=== PATIENT | female | born 1945 | race Caucasian/White ===

== ENCOUNTER 2017-02-11 13:50 | Outpatient (CLI) | payer MEDICARE, OTHER ==
--- NOTE | 2017-02-11 15:39 | XRAY Report ---
FOUR VIEW LEFT KNEE: 02/11/2017 CLINICAL INDICATION: Joint pain. FINDINGS: AP, notch, lateral, and sunrise views of the left knee demonstrate mild osteoarthritis. Th ere is no evidence of acute fracture or dislocation. No radiopaque foreign body is seen in the soft t issues. IMPRESSION: MILD LEFT KNEE OSTEOARTHRITIS. JOB #: [id number] EXT JOB #:[id number]
== END 2017-02-11 13:51 | disposition home or self-care (01) ==
LOC: DI 13:50
PROVIDERS: ATTEND Orthopaedic Surgery
DX: M17.12 Unilateral primary osteoarthritis, left knee (principal)

== ENCOUNTER 2017-03-27 13:07 | Outpatient (CLI) | payer MEDICARE, OTHER | END 2017-03-27 13:08 | disposition home or self-care (01) | LOC: RT 13:07 | PROVIDERS: ATTEND Physician Assistant | DX: I51.7 Cardiomegaly (principal); R01.1 Cardiac murmur, unspecified; E78.5 Hyperlipidemia, unspecified; I10 Essential (primary) hypertension | CPT/HCPCS: 93005; 93306 ==

== ENCOUNTER 2017-04-15 09:15 | Inpatient (IN) | payer MEDICARE, OTHER ==
[2017-04-15] MEDS ORDERED: ceFAZolin 2 GM/50 ML 2 GM/50 ML BAG IV ONE (09:29)
[2017-04-15] MEDS ORDERED: LACTATED RINGERS 1,000 ML IV ONE (09:30)
[2017-04-15] MEDS ORDERED: KETOROLAC 15 MG/ML VIAL IVP ONE ×2 (12:49→15:55)
[2017-04-15] MEDS ORDERED: EPINEPHrine 1 MG/ML AMP IVP ONE ×2 (12:49→15:54)
[2017-04-15] MEDS ORDERED: ROPIVACAINE 0.2% PF 20 ML AMPULE SUBQ ONE ×2 (12:50→15:55)
[2017-04-15] MEDS ORDERED: MORPHINE PF 10 MG/10 ML AMP SUBQ ONE ×2 (12:51→15:55)
[2017-04-15] MEDS ORDERED: BUPIVACAINE 0.5%-EPI 1:200000 PF 30 ML VIAL SUBQ ONE ×2 (12:51→15:55)
--- NOTE | 2017-04-15 16:46 | OPERATIVE REPORT ---
Operative Report - General Admit Date: 04/15/17 Procedure Date: 04/15/17 Pre-Op Diagnosis: Left Knee Osteoarthritis Procedure Performed: Left Total Knee Arthroplasty Post Op Diagnosis: Same - Procedure Note Primary Surgeon: Dre Aguilar MD Anesthesia Provider: MD Frederick Anesthesia Technique: General ET tube, Regional block, Spinal Pathology: Same IV Fluids (mL): 1,900 (LR) Estimated Blood Loss (mL): 300 Urine Output (mL): 100 Complications: None. - Other Other Information/Narrative: Tourniquet: Left Thigh @ 275 mm Hg x 90 minutes w/o complications. Implants: Moses Persona Knee: Femoral Component Sz 7 Narrow, PS Tibial Tray Sz C Tibial Insert Polyethylene Sz C x 10 mm PS Patella Button Polyethylene 32 x 8 mm Palacos Cement Condition: Stable Disposition: PACU >> Med Surg
[2017-04-15] MEDS ORDERED: PROCHLORPERAZINE 10 MG/2 ML VIAL IVP PRN (16:49)
[2017-04-15] MEDS ORDERED: BISACODYL 5 MG TABLET PO PRN (16:49)
[2017-04-15] MEDS ORDERED: SENNA 8.6 MG TABLET PO PRN (16:49)
[2017-04-15] MEDS ORDERED: ONDANSETRON 4 MG/2 ML VIAL IVP PRN (16:49)
[2017-04-15] MEDS ORDERED: ACETAMINOPHEN 325 MG TABLET PO PRN (16:49)
[2017-04-15] MEDS ORDERED: DOCUSATE SODIUM 100 MG CAPSULE PO PRN (16:49)
[2017-04-15] MEDS ORDERED: ACETAMINOPHEN 1,000 MG/100 ML 100 ML IV PRN (16:49)
[2017-04-15] MEDS ORDERED: BISACODYL 10 MG SUPP PR PRN (16:49)
[2017-04-15] MEDS ORDERED: HYDROmorphone 1 MG/ML SYRINGE ONE (17:30)
[2017-04-15] MEDS ORDERED: fentaNYL 100 MCG/2 ML VIAL ONE (17:37)
[2017-04-15] MEDS: KETOROLAC 15 MG/ML VIAL IVP PRN (18:37)
[2017-04-15] MEDS: HYDROmorphone 1 MG/ML SYRINGE IVP PRN (18:37)
--- NOTE | 2017-04-15 18:59 | XRAY Preliminary Report ---
Exam: XR Knee 2 View LT IMPRESSION: Expected appearance of left knee arthroplasty. [facility] SITE ID: [id number]
--- NOTE | 2017-04-15 19:01 | XRAY Report ---
EXAM: LEFT KNEE RADIOGRAPHY EXAM DATE: 04/15/2017 05:21 PM. CLINICAL HISTORY: S/p Left TKA. COMPARISON: 02/11/2017. TECHNIQUE: 2 views. FINDINGS: Bones and Joints: No fractures or bone lesion. A 3 component left knee arthroplasty has been performe d. There is expected alignment of components. No unexpected periprosthetic lucency or other evidence of loosening. Soft Tissues: No knee effusion. Vascular calcifications and postop soft tissue air noted. IMPRESSION: Expected appearance of left knee arthroplasty. [facility] Referring Provider Line: [phone] SITE ID: [id number]
[2017-04-15] MEDS: ceFAZolin 2 GM/50 ML 2 GM/50 ML BAG IV SCH (21:30)
[2017-04-15] MEDS: ATORVASTATIN 10 MG TABLET PO SCH (21:30)
[2017-04-15] MEDS: METOPROLOL TARTRATE 25 MG TABLET PO SCH (21:31)
[2017-04-15] MEDS: LISINOPRIL 20 MG TABLET PO SCH (21:32)
[2017-04-15] MEDS: hydroCHLOROthiazide 12.5 MG CAPSULE PO SCH (21:32)
[2017-04-15] MEDS: SODIUM CHLORIDE FLUSH 0.9% 10 ML SYRINGE IVP SCH (21:33)
[2017-04-15] MEDS: oxyCOD/ACETAMIN 5 MG/325 MG TABLET PO PRN (21:37)
[2017-04-15] MEDS: SODIUM CHLORIDE 0.45% 1,000 ML IV SCH (21:43)
[2017-04-16] MEDS: HYDROmorphone 1 MG/ML SYRINGE IVP PRN ×5 (00:49→17:50)
[2017-04-16] MEDS: KETOROLAC 15 MG/ML VIAL IVP PRN ×3 (00:50→22:24)
[2017-04-16] MEDS: oxyCOD/ACETAMIN 5 MG/325 MG TABLET PO PRN ×4 (03:12→20:59)
[2017-04-16] MEDS: ceFAZolin 2 GM/50 ML 2 GM/50 ML BAG IV SCH (05:53)
[2017-04-16] MEDS: SODIUM CHLORIDE FLUSH 0.9% 10 ML SYRINGE IVP SCH ×4 (05:55→17:51)
[2017-04-16] MEDS: PANTOPRAZOLE 40 MG TABLET PO SCH (05:57)
[2017-04-16 06:41] LABS: BASOPHILS % (AUTO) 0.3 %; EOSINOPHILS # (AUTO) 0.1 10^3/uL (0.0-0.7); HCT - HEMATOCRIT 35.7 % (37.0-47.0); HGB - HEMOGLOBIN 11.9 g/dL (12.0-16.0); LYMPHOCYTES # (AUTO) 0.5 10^3/uL (1.5-3.5); LYMPHOCYTES % (AUTO) 5.8 %; MEAN CORPUSCULAR HEMOGLOBIN 33.8 pg (27.0-31.0); MEAN CORPUSCULAR HGB CONC 33.5 g/dL (32.0-36.0); MEAN CORPUSCULAR VOLUME 101.1 fL (81.0-99.0); MEAN PLATELET VOLUME 7.5 fL (7.9-10.8); MONOCYTES # (AUTO) 0.8 10^3/uL (0.0-1.0); MONOCYTES % (AUTO) 9.9 %; NUCLEATED RED BLOOD CELLS AUTO 0.1 /100WBC; RED BLOOD COUNT 3.53 10^6/uL (4.20-5.40); RED CELL DISTRIBUTION WIDTH 12.9 % (12.0-15.0); UNCORRECTED WHITE BLOOD COUNT 8.4 x10^3/uL; WHITE BLOOD COUNT 8.4 x10^3/uL (4.8-10.8)
[2017-04-16 06:55] LABS: CALCIUM 8.2 mg/dL (8.5-10.3); CREATININE 0.6 mg/dL (0.4-1.0); POTASSIUM 3.9 mmol/L (3.5-5.0)
[2017-04-16] MEDS: SODIUM CHLORIDE 0.45% 1,000 ML IV SCH ×2 (06:55→18:50)
[2017-04-16] MEDS ORDERED: BETA CAROTENE 25000 UNIT PO SCH (09:00)
[2017-04-16] MEDS: POLYETHYLENE GLYCOL 3350 17 GM PACKET PO SCH (09:07)
[2017-04-16] MEDS: METOPROLOL TARTRATE 25 MG TABLET PO SCH ×2 (09:09→20:59)
[2017-04-16] MEDS: LISINOPRIL 20 MG TABLET PO SCH ×2 (09:11→20:58)
[2017-04-16] MEDS: MULTIVITAMIN TABLET PO SCH (09:12)
[2017-04-16] MEDS: TOCOPHERYL 400 UNIT CAPSULE PO SCH (09:12)
[2017-04-16] MEDS: SERTRALINE 50 MG TABLET PO SCH (09:12)
[2017-04-16] MEDS: ENOXAPARIN 40 MG/0.4 ML SYRINGE SUBQ SCH (09:13)
[2017-04-16] MEDS: CALCIUM CITRATE 250 MG TABLET PO SCH (09:13)
[2017-04-16] MEDS: CHOLECALCIFEROL 1,000 UNIT TABLET PO SCH (09:13)
[2017-04-16] MEDS: hydroCHLOROthiazide 12.5 MG CAPSULE PO SCH ×2 (11:00→20:58)
[2017-04-16] MEDS: SODIUM CHLORIDE FLUSH 0.9% 10 ML SYRINGE IVP PRN ×3 (12:09→22:24)
[2017-04-16] MEDS ORDERED: ONDANSETRON 4 MG/2 ML VIAL IVP ONE (16:00)
[2017-04-16] MEDS ORDERED: LIDOCAINE-MPF 2% 5 ML VIAL IM ONE (16:00)
[2017-04-16] MEDS ORDERED: ACETAMINOPHEN 1,000 MG/100 ML 100 ML IV ONE (16:00)
[2017-04-16] MEDS ORDERED: fentaNYL 100 MCG/2 ML VIAL IVP ONE (16:00)
[2017-04-16] MEDS ORDERED: METOCLOPRAMIDE 10 MG/2 ML VIAL IVP ONE (16:00)
[2017-04-16] MEDS ORDERED: PROPOFOL 200 MG/20 ML VIAL IVP ONE (16:00)
[2017-04-16] MEDS ORDERED: TRANEXAMIC ACID 1,000 MG/10 ML VIAL IV ONE (16:00)
[2017-04-16] MEDS ORDERED: DEXAMETHASONE 4 MG/ML VIAL IVP ONE (16:00)
[2017-04-16] MEDS ORDERED: ceFAZolin 2 GM/50 ML BAG IV ONE (16:00)
[2017-04-16] MEDS ORDERED: KETOROLAC 30 MG/ML VIAL IVP ONE (16:00)
[2017-04-16] MEDS: ATORVASTATIN 10 MG TABLET PO SCH (20:58)
[2017-04-17] MEDS: oxyCOD/ACETAMIN 5 MG/325 MG TABLET PO PRN ×6 (00:49→21:40)
[2017-04-17] MEDS: HYDROmorphone 1 MG/ML SYRINGE IVP PRN ×3 (03:32→17:13)
[2017-04-17] MEDS: PANTOPRAZOLE 40 MG TABLET PO SCH (06:28)
[2017-04-17] MEDS: LISINOPRIL 20 MG TABLET PO SCH ×2 (09:09→21:40)
[2017-04-17] MEDS: METOPROLOL TARTRATE 25 MG TABLET PO SCH ×2 (09:09→21:40)
[2017-04-17] MEDS: TOCOPHERYL 400 UNIT CAPSULE PO SCH (09:09)
[2017-04-17] MEDS: ENOXAPARIN 40 MG/0.4 ML SYRINGE SUBQ SCH (09:09)
[2017-04-17] MEDS: POLYETHYLENE GLYCOL 3350 17 GM PACKET PO SCH (09:09)
[2017-04-17] MEDS: MULTIVITAMIN TABLET PO SCH (09:10)
[2017-04-17] MEDS: CALCIUM CITRATE 250 MG TABLET PO SCH (09:10)
[2017-04-17] MEDS: SERTRALINE 50 MG TABLET PO SCH (09:11)
[2017-04-17] MEDS: hydroCHLOROthiazide 12.5 MG CAPSULE PO SCH ×3 (09:11→21:39)
[2017-04-17] MEDS: CHOLECALCIFEROL 1,000 UNIT TABLET PO SCH (09:11)
[2017-04-17] MEDS: KETOROLAC 15 MG/ML VIAL IVP PRN ×2 (09:21→17:59)
[2017-04-17] MEDS: SODIUM CHLORIDE FLUSH 0.9% 10 ML SYRINGE IVP SCH ×3 (09:22→21:41)
[2017-04-17] MEDS: SODIUM CHLORIDE FLUSH 0.9% 10 ML SYRINGE IVP PRN ×2 (17:13→18:00)
[2017-04-17] MEDS: ATORVASTATIN 10 MG TABLET PO SCH (21:39)
[2017-04-18] MEDS: KETOROLAC 15 MG/ML VIAL IVP PRN ×3 (02:11→20:13)
[2017-04-18] MEDS: SODIUM CHLORIDE FLUSH 0.9% 10 ML SYRINGE IVP PRN (02:11)
[2017-04-18] MEDS: oxyCOD/ACETAMIN 5 MG/325 MG TABLET PO PRN ×4 (02:11→20:17)
[2017-04-18] MEDS: PANTOPRAZOLE 40 MG TABLET PO SCH (06:59)
[2017-04-18] MEDS: SODIUM CHLORIDE FLUSH 0.9% 10 ML SYRINGE IVP SCH ×3 (06:59→20:13)
[2017-04-18] MEDS: CALCIUM CITRATE 250 MG TABLET PO SCH (09:19)
[2017-04-18] MEDS: MULTIVITAMIN TABLET PO SCH (09:19)
[2017-04-18] MEDS: hydroCHLOROthiazide 12.5 MG CAPSULE PO SCH ×2 (09:19→20:21)
[2017-04-18] MEDS: METOPROLOL TARTRATE 25 MG TABLET PO SCH ×2 (09:19→20:16)
[2017-04-18] MEDS: SERTRALINE 50 MG TABLET PO SCH (09:19)
[2017-04-18] MEDS: CHOLECALCIFEROL 1,000 UNIT TABLET PO SCH (09:19)
[2017-04-18] MEDS: TOCOPHERYL 400 UNIT CAPSULE PO SCH (09:20)
[2017-04-18] MEDS: LISINOPRIL 20 MG TABLET PO SCH ×2 (09:20→20:16)
[2017-04-18] MEDS: ENOXAPARIN 40 MG/0.4 ML SYRINGE SUBQ SCH (09:20)
[2017-04-18] MEDS: POLYETHYLENE GLYCOL 3350 17 GM PACKET PO SCH (09:20)
[2017-04-18] MEDS: HYDROmorphone 1 MG/ML SYRINGE IVP PRN (10:09)
[2017-04-18] MEDS ORDERED: DOCUSATE SODIUM 250 MG CAPSULE PO ONE (14:27)
[2017-04-18] MEDS ORDERED: SENNA 8.6 MG TABLET ONE (14:28)
[2017-04-18] MEDS: SENNA 8.6 MG TABLET PO SCH (14:29)
[2017-04-18] MEDS: DOCUSATE SODIUM 250 MG CAPSULE PO SCH (14:29)
[2017-04-18] MEDS: ATORVASTATIN 10 MG TABLET PO SCH (20:27)
[2017-04-19] MEDS: oxyCOD/ACETAMIN 5 MG/325 MG TABLET PO PRN ×3 (00:52→10:57)
[2017-04-19] MEDS: KETOROLAC 15 MG/ML VIAL IVP PRN (05:05)
[2017-04-19] MEDS: SODIUM CHLORIDE FLUSH 0.9% 10 ML SYRINGE IVP SCH (05:05)
[2017-04-19] MEDS: PANTOPRAZOLE 40 MG TABLET PO SCH (06:42)
[2017-04-19 08:05] VITALS: BP 110/67
[2017-04-19] MEDS: CALCIUM CITRATE 250 MG TABLET PO SCH (08:55)
[2017-04-19] MEDS: METOPROLOL TARTRATE 25 MG TABLET PO SCH (08:55)
[2017-04-19] MEDS: CHOLECALCIFEROL 1,000 UNIT TABLET PO SCH (08:55)
[2017-04-19] MEDS: MULTIVITAMIN TABLET PO SCH (08:55)
[2017-04-19] MEDS: SENNA 8.6 MG TABLET PO SCH (08:56)
[2017-04-19] MEDS: TOCOPHERYL 400 UNIT CAPSULE PO SCH (08:56)
[2017-04-19] MEDS: ENOXAPARIN 40 MG/0.4 ML SYRINGE SUBQ SCH (08:56)
[2017-04-19] MEDS: DOCUSATE SODIUM 250 MG CAPSULE PO SCH (08:56)
[2017-04-19] MEDS: LISINOPRIL 20 MG TABLET PO SCH (08:57)
[2017-04-19] MEDS: SERTRALINE 50 MG TABLET PO SCH (08:57)
[2017-04-19] MEDS: hydroCHLOROthiazide 12.5 MG CAPSULE PO SCH (08:57)
[2017-04-19] MEDS ORDERED: DOCUSATE SODIUM 250 MG CAPSULE PO SCH (09:00)
[2017-04-19] MEDS ORDERED: SENNA 8.6 MG TABLET PO SCH (09:00)
--- NOTE | 2017-04-19 09:19 | PROVIDER PROGRESS NOTE ---
Subjective - Prog Note Date Prog Note Date: 04/16/17 Prog Note Time: 12:00 - Subjective Pt reports feeling: Improved (Pain well controlled. Has not been up with PT yet. Will be up this afternoon.) Objective - Vital Signs/Intake & Output Reviewed Vital Signs: Yes Vital Signs: Vital Signs x48h Temp Pulse Resp BP BP Pulse Ox 04/19/17 08:55 110/67 04/19/17 08:00 36.4 C L 81 20 110/67 98 04/19/17 04:21 36.7 C 83 20 152/87 H 98 Intake & Output: Intake & Output 04/16/17 04/17/17 04/18/17 04/19/17 23:59 23:59 23:59 23:59 Intake Total 5480 1720 630 480 Output Total 1015 1025 200 Balance 4465 695 630 280 - Objective General Appearance: positive: Alert, Mild distress Eyes Bilateral: positive: Normal inspection ENT: positive: ENT inspection nml Neck: positive: Nml inspection Respiratory: positive: No respiratory distress, Breath sounds nml Cardiovascular: positive: Regular rate & rhythm Peripheral Pulses: 2+ Dorsalis pedis (L), 2+ Posterior tibialis (L) Abdomen: positive: Non-tender, Nml bowel sounds, No distention. negative: Guarding Back: positive: Nml inspection Skin: positive: Color nml Extremities: positive: Nml appearance, Other (Right knee dressing and wound C/D/ I. moderate surrounding erythema, consistent with her previous surgeries done by me.). negative: Calf tenderness, Ashley's sign/cords Neurologic/Psychiatric: positive: Oriented x3, Motor nml, Sensation nml, Mood/ affect nml - Lab Results Fish Bones: 04/16/17 05:57 04/16/17 05:57 - Diagnostic Imaging Diagnostic Imaging Results: positive: Read independently (Left TKA components in good position with normal alignment.) Assessment/Plan - Problem List (1) Status post total left knee replacement using cement Impression: Stable Post-Op Plan: 1. PT. 2. Begin planning for D/C to home.
--- NOTE | 2017-04-19 09:26 | PROVIDER PROGRESS NOTE ---
Subjective - Prog Note Date Prog Note Date: 04/17/17 - Subjective Pt reports feeling: Improved (Has been up w/ PT, making progress with walker. Pain well cointrolled.) Objective - Vital Signs/Intake & Output Reviewed Vital Signs: Yes Vital Signs: Vital Signs x48h Temp Pulse Resp BP BP Pulse Ox 04/19/17 08:55 110/67 04/19/17 08:00 36.4 C L 81 20 110/67 98 04/19/17 04:21 36.7 C 83 20 152/87 H 98 Intake & Output: Intake & Output 04/16/17 04/17/17 04/18/17 04/19/17 23:59 23:59 23:59 23:59 Intake Total 5480 1720 630 480 Output Total 1015 1025 200 Balance 4465 695 630 280 - Objective General Appearance: positive: No acute distress Eyes Bilateral: positive: Normal inspection ENT: positive: ENT inspection nml Neck: positive: Nml inspection Respiratory: positive: No respiratory distress, Breath sounds nml Cardiovascular: positive: Regular rate & rhythm Peripheral Pulses: 2+ Dorsalis pedis (L), 2+ Posterior tibialis (L) Abdomen: positive: Non-tender, Nml bowel sounds, No distention. negative: Guarding Back: positive: Nml inspection Skin: positive: Color nml, No rash, Warm, Dry Extremities: positive: Other (Dressing intact, no increase in erythema. Mildly tender to palpation.). negative: Calf tenderness, Ashley's sign/cords - Lab Results Fish Bones: 04/16/17 05:57 04/16/17 05:57 Assessment/Plan - Problem List (1) Status post total left knee replacement using cement Impression: Stable Post-Op day #2 Plan: 1. Continue PT bid. 2. Plan D/C to home tomorrow or Saturday depending on PT progress. (2) Aftercare following knee joint replacement surgery Qualifiers: Laterality: left Qualified Code(s): Z47.1 - Aftercare following joint replacement surgery; Z96.652 - Presence of left artificial knee joint; Z96.652 - Presence of left artificial knee joint
--- NOTE | 2017-04-19 09:31 | PROVIDER PROGRESS NOTE ---
Subjective - Prog Note Date Prog Note Date: 04/18/17 - Subjective Pt reports feeling: Improved Subjective: Making progress with PT. Anticipate doing steps today and D/C tomorrow am. Pain well controlled w/ Percocet. Objective - Vital Signs/Intake & Output Reviewed Vital Signs: Yes Vital Signs: Vital Signs x48h Temp Pulse Resp BP BP Pulse Ox 04/19/17 08:55 110/67 04/19/17 08:00 36.4 C L 81 20 110/67 98 04/19/17 04:21 36.7 C 83 20 152/87 H 98 Intake & Output: Intake & Output 04/16/17 04/17/17 04/18/17 04/19/17 23:59 23:59 23:59 23:59 Intake Total 5480 1720 630 480 Output Total 1015 1025 200 Balance 4465 695 630 280 - Objective General Appearance: positive: No acute distress Eyes Bilateral: positive: Normal inspection ENT: positive: ENT inspection nml Neck: positive: Nml inspection Respiratory: positive: No respiratory distress, Breath sounds nml Cardiovascular: positive: Regular rate & rhythm Peripheral Pulses: 2+ Dorsalis pedis (L), 2+ Posterior tibialis (L) Abdomen: positive: Non-tender, Nml bowel sounds, No distention. negative: Guarding Back: positive: Nml inspection Skin: positive: Color nml, No rash, Warm, Dry Extremities: positive: Other (Wound C/D/I.). negative: Calf tenderness, Ashley' s sign/cords - Lab Results Fish Bones: 04/16/17 05:57 04/16/17 05:57 Assessment/Plan - Problem List (1) Status post total left knee replacement using cement Impression: Stable Post-Op Day #3 Plan: 1. Anticipate D/C to home tomorrow. 2. Will change Mepilex prior to D/C. (2) Aftercare following knee joint replacement surgery Qualifiers: Laterality: left Qualified Code(s): Z47.1 - Aftercare following joint replacement surgery; Z96.652 - Presence of left artificial knee joint; Z96.652 - Presence of left artificial knee joint
--- NOTE | 2017-04-19 09:36 | Discharge Plan ---
Discharge Plan Disposition: 01 Home, Self Care Condition: Good Prescriptions: Docusate Sodium 250Mg Capsule [Colace 250Mg Capsule] 250 - 500 mg PO DAILY #14 capsule oxyCODONE/ACET 5/325 [Percocet 5 mg/325 mg] 1 tab PO Q4HR PRN #20 tablet PRN Reason: Breakthrough Pain Diet: Regular Activity Restrictions: Wt Bearing as Tolerated Shower Restrictions: Yes (Keep wound dry.) Driving Restrictions: Yes Assistance Devices: Walker Weight Bearing: Full Weight Follow-Up Care: Outpatient Rehab - PT No Smoking: If you smoke, Please STOP! Call for help. Follow-up with: Nicole Mack PA [Primary Care Provider] - Dre Aguilar MD [Provider Admit Priv/Credential] -
[2017-04-19] MEDS: POLYETHYLENE GLYCOL 3350 17 GM PACKET PO SCH (10:57)
--- NOTE | 2017-05-10 15:13 | DISCHARGE SUMMARY ---
DATE OF ADMISSION: 04/15/2017 DATE OF DISCHARGE: 04/19/2017 CONDITION ON DISCHARGE: Good. FINAL DIAGNOSES: 1. Left total knee arthroplasty. 2. Aftercare for left total knee joint arthroplasty. PROCEDURE: Left total knee arthroplasty performed on 04/15/2017 without complication. HISTORY OF PRESENT ILLNESS: This is a 72-year-old female with a previous orthopedic history significa nt for bilateral knee osteoarthritis status post right total knee arthroplasty done several months be fore this procedure. She has also had a history of a right ankle bimalleolar fracture which underwent open reduction internal fixation. She also has a previous history of significant wound healing probl ems on both right and left lower extremities, requiring extensive wound care. However, she was noted on her previous right total knee arthroplasty to have healed the wounds satisf actorily without significant complications. After her history worsened with pain to her left knee inc luding pain at night and pain refractory to injection, as well as [id number]-[id number] anti-inflammatorie s and acetaminophen, as well as physical therapy and exercise, activity modification, and pain to the right hand, we elected to proceed with a left total knee arthroplasty. LABORATORY DATA: Hematology on 04/16/2017 showed a white count of 8.4, hemoglobin 11.9, hematocrit 35 .7, platelet count of 181, neutrophils 7.0, lymphocytes 0.5, monocytes 0.8, eosinophil 0.1, basophils 0.0. Chemistry on the same date showing a sodium of 135, potassium 3.9, chloride 100, CO2 28, BUN 15 , creatinine 0.6, glucose 116, calcium 8.2. HOSPITAL COURSE: The patient was admitted on 04/15/2017 where she underwent a left total knee arthrop lasty. Her postoperative course was significant for pain control issues as well as mobilization issue s with physical therapy. She was kept for an extra day to allow additional physical therapy work to g et her prepared for discharge to home. In discussion with the family the felt that he was nick quately able to care for at home and they both desired not to have to go to a shelter facilit y. After the patient was cleared by Physical Therapy we elected to discharge her to home. DISCHARGE MEDICATIONS: 1. Simvastatin 40 mg p.o. at bedtime. 2. Benazepril/hydrochlorothiazide 20/12.5 mg p.o. b.i.d.. 3. Multivitamin 1 p.o. daily. 4. Cholecalciferol (vitamin D3/vitamin D 10,000 units per capsule, 1 unit p.o. daily). 5. Sertraline 25 mg 2 tablets p.o. daily. 6. Vitamin E 400 units p.o. daily. 7. Betacarotene 25,000 units p.o. daily. 8. Omeprazole 20 mg p.o. daily. 9. Calcium citrate 200 mg p.o. daily. 10. Metoprolol 25 mg p.o. b.i.d.. 11. Acetaminophen 325 mg 2-3 tablets p.o. q.4h. p.r.n. pain. 12. Docusate sodium 250 mg 1-2 tablets p.o. daily. 13. Oxycodone/acetaminophen 5/325 mg 1 p.o. q.4h. p.r.n. pain, #20, no refills. DISCHARGE INSTRUCTIONS: The patient is discharged to home under the care of her to begin phys ical therapy early next week. DIET: Regular. ACTIVITY: Weightbearing as tolerated, right left lower extremity with a walker. FOLLOWUP APPOINTMENTS: [facility], , 2 weeks for a wound check. CODE STATUS: FULL CODE. JOB #: [id number] EXT JOB #:[id number]
--- NOTE | 2017-05-11 10:05 | OPERATIVE REPORT ---
DATE OF SURGERY: 04/15/2017 00:00:00 PREOPERATIVE DIAGNOSIS: Left knee osteoarthritis. POSTOPERATIVE DIAGNOSIS: Left knee osteoarthritis. NAME OF PROCEDURE: Left total knee arthroplasty. SURGEON: Dre Aguilar MD ANESTHESIA: Berto Mack MD, general endotracheal tube and regional block with spinal supplementati on. PATHOLOGY: Same. INTRAVENOUS FLUIDS: 1900 mL of lactated Ringer's. BLOOD LOSS: 300 mL. URINE OUTPUT: 100 mL. COMPLICATIONS: None. TOURNIQUET: Left thigh at 275 mmHg for 90 minutes without complications. IMPLANTS 1. Moses Persona knee femoral component size 7 narrow, posterior stabilized. 2. Tibial tray size C. 3. Tibial insert polyethylene size C x 10 mm, posterior stabilized. 4. Patellar button, polyethylene, 32 x 8 mm. 5. Palacos cement without antibiotics. CONDITION AT END OF PROCEDURE: Stable. DISPOSITION: PACU, then Med/Surg. INDICATIONS: This is a 72-year-old somewhat obese female who had previously undergone a right total k nee arthroplasty and has done very well since her surgery. She has a past history of a right ankle fr acture as well, and has had several wound healing complications over her recent medical past. She did, however, satisfactorily heal the right total knee arthroplasty incision which was done sever al months ago. She has now rehabilitated her right knee and is bothered significantly by pain in her left knee which has been refractory to injections, physical therapy, cane to the right hand, OTC anal gesics, and activity modification. Her pain has reached the point where it is interfering with her sl eeping at night. She elects to undergo left total knee arthroplasty. PROCEDURE IN DETAIL: After consent and identification, the patient was brought to the operating room and placed in the supine position on the operating table. After standard endotracheal intubation and establishment of a spinal anesthetic, the patient was placed in a supine position with appropriate mo nitoring and the left lower extremity was prepped and draped free in the usual sterile fashion for lo wer extremity surgery. Padded tourniquet was placed to the proximal left thigh. The left lower extremity was then placed in a sterile Muñoz leg joaquin. After an appropriate timeout was conducted, we elevated and exsanguinated the left lower extremity wi th an Esmarch bandage. The tourniquet was inflated to 275 mmHg. With the knee in an extended position, a standard median parapatellar approach was used to the knee a nd the patella was everted. Osteophytes were removed aggressively with a rongeur and osteotome. We th en performed a standard intramedullary reference distal femoral cut at 10 mm using the distal femoral cutting guide and an oscillating saw. We then placed the sizing and cutting block on the distal femu r and performed our anterior and posterior, as well as anterior chamfer and posterior chamfer, cuts. We saved the anterior chamfer bone piece to use as a plug to plug the drill hole in the distal femur. We then sized the distal femur to a size 7 narrow posterior stabilized component. At this point, with the femoral trial in place, we performed our box cuts. We resected the posterior and anterior cruciate ligaments. We then resected the medial and lateral meniscus sharply with a 10 b lade scalpel. A tuning fork was then placed to deliver the tibia forward. The extramedullary cutting guide was then placed over the anterior walter, referenced to the 2nd metata rsal. We referenced the low side of the tibia on the lateral compartment and affixed the cutting guid e with pins and used an oscillating saw to perform a proximal tibial cut. At this point, we used the sizing blocks to check our flexion and extension gaps, which were noted to be satisfactory. Good collateral ligamentous support was noted. We then placed the tibial tray components over the proximal tibia and sized to a size C tibial compon ent. With the trial tray in place, we placed our pins and performed our reamer and fin cuts to the pr oximal tibia. We then inserted our size #7 narrow posterior stabilized femoral component and a 10 mm posterior stabilized tibial insert to the knee and ranged the knee, noting good stability and good co llateral ligament play. With the knee in an extended position, we placed the caliper on the patella a nd noted the patellar thickness to be 22 mm. We elected to make an 8 mm cut which was performed with an oscillating saw on the cutting guide. We drilled our 3 submersible pilot holes and placed a 32 x 8 mm trial pa tellar component and reduced the patella. Good tracking was noted in flexion and extension. We then removed all of our trial components and thoroughly irrigated the knee with 3 liters of steril e saline. We then placed dry lap sponges in the knee while we mixed a double batch of Palacos cement on the back table. With the cement in the doughy consistency, we opened our components after verifying sizes, and placed cement on the back of the femoral and tibial tray components. The tibial tray was inserted first, fo llowed by insertion and impaction of the femoral component. Aggressive cement debridement was carried out and careful inspection of the posterior condyles to make sure there was no cement in the posteri or aspect of the knee. We then clamped our patellar component with cement on the back of the patellar component onto the patella. We then extended the knee and placed the foot on the Marina stand to allow the cement to harden. After cement had completely hardened, we inspected the knee once again, removing any excess cement. W e then thoroughly irrigated the knee. We elected at this point to deflate the tourniquet and used isidro ctrocautery and a tonsil forceps to achieve good hemostasis. Once we had achieved good hemostasis, we then sequentially closed the knee by placing a running #2 Ethibond suture to the median retinaculum, followed by interrupted 2-0 Vicryl subcuticular sutures, followed by a running 3-0 Monocryl suture t o the dermis. We infiltrated the wound with a total of 30 mL of 0.5% Marcaine with epinephrine. On completion of our closure, we placed a Mepilex Ag dressing over the knee. We then wrapped the enti re lower leg from thigh to foot with a 6-inch and 4-inch Richard bandage. With the Richard bandage in place, checking for any bleed-through, we then deflated the tourniquet withou t complication. The patient was then extubated and transferred to the recovery room in good condition, having tolerat ed the procedure well. JOB #: [id number] EXT JOB #:[id number]
== END 2017-04-19 11:30 | disposition home or self-care (01) | DRG 470 ==
LOC: MS3 09:15
PROVIDERS: ADMIT Orthopaedic Surgery; ATTEND Orthopaedic Surgery
PROC: 0SRD0J9 Replacement of Left Knee Joint with Synthetic Substitute, Cemented, Open Approach (ICD-10-PCS; principal; 2017-04-15 10:15)
DX: M17.12 Unilateral primary osteoarthritis, left knee (principal); Z68.42 Body mass index [BMI] 45.0-49.9, adult; Z96.653 Presence of artificial knee joint, bilateral; I10 Essential (primary) hypertension; E66.9 Obesity, unspecified; E78.5 Hyperlipidemia, unspecified; K76.9 Liver disease, unspecified; Z87.81 Personal history of (healed) traumatic fracture; Z85.89 Personal history of malignant neoplasm of other organs and systems; Z79.82 Long term (current) use of aspirin; Z87.2 Personal history of diseases of the skin and subcutaneous tissue
CPT/HCPCS: 36415; 80048; 85025

== ENCOUNTER 2017-09-17 10:38 | Outpatient (CLI) | payer MEDICARE, OTHER ==
--- NOTE | 2017-09-18 14:23 | Mammography Report ---
DIGITAL SCREENING MAMMOGRAM: 09/17/2017 CLINICAL INDICATION: A 72-year-old with personal history of left breast cancer, status post lumpectomy and radiation therapy for screening. COMPARISON: 03/2016, 12/2014, 12/2013, 12/2012, 12/2011, 06/2011, 12/2010, 06/2010, 12/2009, 11/2009. TECHNIQUE: Routine CC and MLO projections of the breasts. FINDINGS: The breasts demonstrate scattered fibroglandular densities bilaterally. Postoperative and post-treatment changes in the left breast are stable. Coarse and punctate, typically benign calcifications are present. No suspicious masses, clustered microcalcifications, or regions of architectural distortion are identified. IMPRESSION: BENIGN FINDINGS. RECOMMENDATION: Routine annual screening unless otherwise clinically indicated. BIRADS CATEGORY 2 - benign findings. STANDARD QUALIFYING STATEMENTS: 1. This examination was reviewed with the aid of Computer-Aided Detection (CAD). 2. A negative or benign imaging report should not delay biopsy if clinically suspicious findings are present. Consider surgical consultation if warranted. More than 5% of cancers are not identified by imaging. 3. Dense breasts may obscure an underlying neoplasm. TD: 09/18/2017 14:22
== END 2017-09-17 10:39 | disposition home or self-care (01) ==
LOC: DI 10:38
PROVIDERS: ATTEND Physician Assistant
DX: Z12.31 Encounter for screening mammogram for malignant neoplasm of breast (principal); Z85.3 Personal history of malignant neoplasm of breast
CPT/HCPCS: 77067

== ENCOUNTER 2019-03-11 10:35 | Outpatient (CLI) | payer MEDICARE, OTHER ==
--- NOTE | 2019-03-11 15:55 | XRAY Report ---
Reason: COUGH Procedure Date: 03/11/2019 Accession Number: [id number] / [id number] Procedure: XRS - Chest 2 View X-Ray CPT Code: 35962 FULL RESULT: EXAM: CHEST RADIOGRAPHY EXAM DATE: 03/11/2019 10:51 AM. CLINICAL HISTORY: COUGH. COMPARISON: 08/06/2015 3:26 AM. TECHNIQUE: 2 views. FINDINGS: Lungs/Pleura: No focal opacities evident. No pleural effusion. No pneumothorax. Normal volumes. Mediastinum: Heart and mediastinal contours are unremarkable. Other: None. IMPRESSION: Normal 2-view chest radiography. [facility]
[2019-03-11 17:56] LABS: BASOPHILS % (AUTO) 0.2 %; EOSINOPHILS % (AUTO) 5.6 %; HGB - HEMOGLOBIN 13.6 g/dL (12.0-16.0); LYMPHOCYTES % (AUTO) 1.9 %; MEAN CORPUSCULAR HEMOGLOBIN 33.5 pg (27.0-31.0); MEAN CORPUSCULAR HGB CONC 32.5 g/dL (32.0-36.0); MEAN PLATELET VOLUME 10.7 fL (7.9-10.8); MONOCYTES % (AUTO) 4.1 %; NEUTROPHILS % (AUTO) 83.3 %; PLT - PLATELET COUNT 245 10^3/uL (130-450); RED BLOOD COUNT 4.06 10^6/uL (4.20-5.40); RED CELL DISTRIBUTION WIDTH 13.3 % (12.0-15.0)
[2019-03-11 18:26] LABS: THYROID STIMULATING HORMONE 3.59 uIU/mL (0.34-5.60)
[2019-03-11 18:29] LABS: ABNORMAL LYMPHS % (MANUAL) 0 %; WHITE BLOOD COUNT 58.5 x10^3/uL (4.8-10.8)
[2019-03-11 18:30] LABS: FREE T4 (FREE THYROXINE) 0.98 ng/dL (0.58-1.64)
[2019-03-11 18:35] LABS: ALBUMIN/GLOBULIN RATIO 0.7 (1.0-2.2); ALKALINE PHOSPHATASE 147 IU/L (42-121); ALT ALANINE AMINOTRANSFERASE < 10 IU/L (10-60); AMYLASE 37 U/L (28-100); AST ASPARTATE AMINOTRANSFERASE 15 IU/L (10-42); BILIRUBIN,TOTAL 0.5 mg/dL (0.2-1.0); BUN - BLOOD UREA NITROGEN 52 mg/dL (6-20); CALCIUM 8.7 mg/dL (8.5-10.3); CARBON DIOXIDE - CO2 19 mmol/L (21-32); CHLORIDE 95 mmol/L (101-111); CHOLESTEROL 99 mg/dL; CREATININE 2.2 mg/dL (0.4-1.0); GFR - MDRD 22 (>89); GLUCOSE 133 mg/dL (70-100); HDL CHOLESTEROL 25 mg/dL; LDL CHOLESTEROL,CALCULATED 38 mg/dL; LDL/HDL RATIO 1.5 (<4.4); LIPASE 27 U/L (22-51); SODIUM 127 mmol/L (135-145); TOTAL PROTEIN 7.2 g/dL (6.7-8.2); VLDL CHOLESTEROL 36 mg/dL
[2019-03-11 19:09] LABS: BAND NEUTROPHILS % (MANUAL) 44 %; EOSINOPHILS # (MANUAL) 1.8 10^3/uL (0-0.7); LYMPHOCYTES # (MANUAL) 1.2 10^3/uL (1.5-3.5); LYMPHOCYTES % (MANUAL) 2 %; MONOCYTES # (MANUAL) 1.8 10^3/uL (0.0-1.0)
[2019-03-11 19:10] LABS: RBC MORPHOLOGY (MULTIPLE) 1+ MACROCYTOSIS (NORMAL)
[2019-03-11 19:11] LABS: DIFFERENTIAL COMMENT MANUAL DIFFERENTIAL; PLATELET ESTIMATE, MANUAL NORMAL (130-450,000) (NORMAL); PLATELET MORPHOLOGY 2+ GIANT PLATELETS (NORMAL)
== END 2019-03-11 10:36 | disposition home or self-care (01) ==
LOC: DI.S 10:35
PROVIDERS: ATTEND Physician Assistant
DX: R05 Cough (principal); R10.9 Unspecified abdominal pain; E78.2 Mixed hyperlipidemia; R53.83 Other fatigue
CPT/HCPCS: 36415; 71046; 80053; 80061; 82150; 83690; 83721; 84439; 84443; 85025

== ENCOUNTER 2019-03-11 20:19 | Inpatient (IN) | payer MEDICARE, OTHER ==
--- NOTE | 2019-03-11 20:50 | ED Physician Documentation ---
History of Present Illness - Stated complaint Stated Complaint: INFECTION - Chief complaint Chief Complaint: General - History obtained from History obtained from: Patient, Family - History of Present Illness Timing: How many weeks ago (2) Pain level max: 0 Pain level now: 0 Improved by: no ameliorating factors Worsened by: no exacerbating factors - Additonal information Additional information: per patient, "I've been very lethargic for two weeks, getting worse", "I just get weaker and weaker". c/o poor appetite, s.o. describes increasingly scant PO intake (both solids and liquids) over past 1-2 weeks. She was seen by PMD earlier today and had blood tests, was advised to go to ED when results returned and revealed significant leukocytosis. Review of Systems Constitutional: reports: Fatigue. denies: Fever, Chills, Myalgias, Sweats Eyes: reports: Reviewed and negative Ears: reports: Reviewed and negative Nose: reports: Reviewed and negative Throat: reports: Reviewed and negative Cardiac: reports: Reviewed and negative Respiratory: reports: Dyspnea (mild), Cough (mild, intermittent) GI: reports: Nausea. denies: Abdominal Pain, Vomiting, Constipation, Diarrhea, Hematemesis, Bloody / black stool : denies: Dysuria, Frequency Skin: reports: Reviewed and negative Musculoskeletal: reports: Reviewed and negative Neurologic: reports: Generalized weakness. denies: Focal weakness, Numbness, Confused, Altered mental status, Headache PD PAST MEDICAL HISTORY - Past Medical History Cardiovascular: Hypertension, High cholesterol, Murmur Respiratory: None Endocrine/Autoimmune: None GI: Colon polyps : Frequency HEENT: Chronic vision loss Psych: None, Depression Musculoskeletal: Osteoarthritis, Chronic back pain, Other Derm: None - Past Surgical History Past Surgical History: Yes General: Appendectomy, Colonoscopy Ortho: Knee replacement, Other /PRODUCT SUPPORT REPRESENTATIVE: Hysterectomy HEENT:  - Present Medications Home Medications: Ambulatory Orders Medication Instructions Recorded Confirmed Benazepril/Hydrochlorothiazide 1 each PO BID 01/07/13 04/15/17 [Benazepril-Hctz 20-12.5 mg Tab] Cholecalciferol (Vitamin D3) 1,000 unit PO DAILY 01/07/13 04/15/17 [Vitamin D3] Multivitamin [Multivitamins] 1 each PO DAILY 01/07/13 04/15/17 Simvastatin 40 mg PO HS 01/07/13 04/15/17 Sertraline [Zoloft] 50 mg PO DAILY 12/18/13 04/15/17 Beta-Carotene [Beta Carotene] 25,000 unit PO DAILY 01/10/15 04/15/17 Calcium Citrate 1 tab PO DAILY 01/10/15 04/15/17 Omeprazole 20 mg PO DAILY 01/10/15 04/15/17 Vitamin E 400 unit PO DAILY 01/10/15 04/15/17 Metoprolol Tartrate 25 mg PO BID 06/18/16 04/15/17 Acetaminophen [Tylenol] 650 - 975 mg PO Q4HR PRN #0 tablet 06/21/16 04/09/17 Docusate Sodium 250Mg Capsule 250 - 500 mg PO DAILY #60 capsule 06/21/16 04/15/17 [Colace 250Mg Capsule] Acetaminophen [Tylenol] 650 - 975 mg PO Q4HR PRN tablet 04/19/17 Docusate Sodium 250Mg Capsule 250 - 500 mg PO DAILY #14 capsule 04/19/17 [Colace 250Mg Capsule] oxyCODONE/ACET 5/325 [Percocet 5 1 tab PO Q4HR PRN #20 tablet 04/19/17 mg/325 mg] - Allergies Allergies/Adverse Reactions: Allergies Allergy/AdvReac Type Severity Reaction Status Date / Time clindamycin Allergy Hives Verified 03/11/19 20:35 Sulfa (Sulfonamide Allergy Hives Verified 03/11/19 20:35 Antibiotics) - Living Situation Living Situation: reports: With spouse/s.o. Living Arrangement: reports: At home - Social History Does the pt smoke?: No Smoking Status: Never smoker Does the pt drink ETOH?: Yes Does the pt have substance abuse?: No - Immunizations Immunizations are current?: Yes - POLST Patient has POLST: No PD ED PE NORMAL - Vitals Vital signs reviewed: Yes - General General: Alert and oriented X 3, No acute distress, Other (obese) - HEENT HEENT: PERRL, EOMI, Other (dry mucous membranes) - Neck Neck: Supple, no meningeal sign - Cardiac Cardiac: RRR, No murmur - Respiratory Respiratory: No respiratory distress - Abdomen Abdomen: Soft, Non distended, Other (mild periumbilical tenderness without rebound or guarding) - Back Back: No CVA TTP - Derm Derm: Normal color, Warm and dry - Neuro Neuro: Alert and oriented X 3 Eye Opening: Spontaneous Motor: Obeys Commands Verbal: Oriented GCS Score: 15 Results - Vitals Vitals: Vital Signs - 24 hr 03/11/19 03/11/19 03/11/19 20:32 20:33 21:05 Temperature 36.3 C L Heart Rate 86 86 83 Respiratory 19 19 Rate Blood Pressure 100/53 L 100/53 L 77/47 L O2 Saturation 96 96 03/11/19 03/11/19 03/11/19 21:30 21:34 22:00 Temperature Heart Rate 84 81 79 Respiratory 16 Rate Blood Pressure 83/55 L 75/63 L 102/80 O2 Saturation 93 03/11/19 03/11/19 03/12/19 22:30 23:00 00:00 Temperature Heart Rate 78 78 76 Respiratory 16 18 16 Rate Blood Pressure 112/89 H 97/78 88/42 L O2 Saturation 93 95 95 03/12/19 03/12/19 00:15 00:45 Temperature Heart Rate 78 Respiratory 21 Rate Blood Pressure 80/38 L 77/60 L O2 Saturation 95 Oxygen O2 Source Room air - EKG (time done) No standard instances Rate: Rate (enter#) (83) Rhythm: NSR [place]: LAD Intervals: Normal MD QRS: Normal Ischemia: Normal ST segments, Q waves (III, aVF), Other (T inverted III, flat aVF) - Labs Labs: Laboratory Tests 03/11/19 03/11/19 03/11/19 21:32 21:32 21:32 WBC 58.4 H* RBC 3.84 L Hgb 12.4 Hct 37.8 MCV 98.4 MCH 32.3 H MCHC 32.8 RDW 13.3 Plt Count 265 MPV 9.8 Neut # (Auto) Not Reportable Lymph # (Auto) Not Reportable [place] # (Auto) Not Reportable Eos # (Auto) Not Reportable Baso # (Auto) Not Reportable Absolute Nucleated RBC Not Reportable Total Counted 100 Band Neuts % (Manual) 31 H Abnorm Lymph % (Manual) 0 Nucleated RBC % Not Reportable Neutrophils # (Manual) 53.1 H Lymphocytes # (Manual) 0.0 L Monocytes # (Manual) 3.5 H Eosinophils # (Manual) 1.8 H Basophils # (Manual) 0.0 Differential Comment MANUAL DIFFERENTIAL WBC Morphology NORMAL APPEARANCE Platelet Estimate NORMAL (130-450,000) Platelet Morphology NORMAL APPEARANCE RBC Morph Micro Appear NORMAL APPEARANCE ESR PT 17.4 H INR 1.5 H APTT 27.0 Sodium 127 L Potassium 3.5 Chloride 92 L Carbon Dioxide 16 L Anion Gap 19.0 H BUN 55 H Creatinine 2.9 H Estimated GFR (MDRD) 16 L Glucose 115 H Lactic Acid Calcium 8.4 L Phosphorus Magnesium Ferritin Total Bilirubin 0.6 AST 13 ALT < 10 L Alkaline Phosphatase 132 H Troponin I High Sens Total Protein 6.6 L Albumin 2.9 L Globulin 3.7 Albumin/Globulin Ratio 0.8 L Lipase 25 TSH Urine Color Urine Clarity Urine pH Ur Specific [place] Urine Protein Urine Glucose (UA) Urine Ketones Urine Occult Blood Urine Nitrite Urine Bilirubin Urine Urobilinogen Ur Leukocyte Esterase Urine RBC Urine WBC Ur Squamous Epith Cells Amorphous Sediment Urine Bacteria Ur Microscopic Review Urine Culture Comments 03/11/19 03/11/19 03/12/19 21:32 22:32 00:40 WBC RBC Hgb Hct MCV MCH MCHC RDW Plt Count MPV Neut # (Auto) Lymph # (Auto) [place] # (Auto) Eos # (Auto) Baso # (Auto) Absolute Nucleated RBC Total Counted Band Neuts % (Manual) Abnorm Lymph % (Manual) Nucleated RBC % Neutrophils # (Manual) Lymphocytes # (Manual) Monocytes # (Manual) Eosinophils # (Manual) Basophils # (Manual) Differential Comment WBC Morphology Platelet Estimate Platelet Morphology RBC Morph Micro Appear ESR PT INR APTT Sodium Potassium Chloride Carbon Dioxide Anion Gap BUN Creatinine Estimated GFR (MDRD) Glucose Lactic Acid 1.2 Calcium Phosphorus Magnesium Ferritin Total Bilirubin AST ALT Alkaline Phosphatase Troponin I High Sens 8.0 Total Protein Albumin Globulin Albumin/Globulin Ratio Lipase TSH Urine Color YELLOW Urine Clarity HAZY Urine pH 5.0 Ur Specific [place] >=1.030 H Urine Protein 30 H Urine Glucose (UA) NEGATIVE Urine Ketones NEGATIVE Urine Occult Blood NEGATIVE Urine Nitrite NEGATIVE Urine Bilirubin NEGATIVE Urine Urobilinogen 0.2 (NORMAL) Ur Leukocyte Esterase NEGATIVE Urine RBC None Seen Urine WBC 0-3 Ur Squamous Epith Cells NONE SEEN Amorphous Sediment Marked Urine Bacteria Rare Ur Microscopic Review INDICATED Urine Culture Comments NOT INDICATED 03/12/19 03/12/19 03/12/19 00:40 00:40 00:40 WBC 44.6 H* RBC 3.26 L Hgb 10.8 L Hct 32.4 L MCV 99.4 H MCH 33.1 H MCHC 33.3 RDW 13.2 Plt Count 217 MPV 9.2 Neut # (Auto) Not Reportable Lymph # (Auto) Not Reportable [place] # (Auto) Not Reportable Eos # (Auto) Not Reportable Baso # (Auto) Not Reportable Absolute Nucleated RBC Not Reportable Total Counted 100 Band Neuts % (Manual) 27 H Abnorm Lymph % (Manual) 0 Nucleated RBC % Not Reportable Neutrophils # (Manual) 38.4 H Lymphocytes # (Manual) 0.9 L Monocytes # (Manual) 0.9 Eosinophils # (Manual) 4.5 H Basophils # (Manual) 0.0 Differential Comment MANUAL DIFFERENTIAL WBC Morphology Platelet Estimate NORMAL (130-450,000) Platelet Morphology RBC Morph Micro Appear NORMAL APPEARANCE ESR PT 19.1 H INR 1.7 H APTT Sodium 132 L Potassium 3.3 L Chloride 103 Carbon Dioxide 17 L Anion Gap 12.0 BUN 53 H Creatinine 2.2 H Estimated GFR (MDRD) 22 L Glucose 87 Lactic Acid Calcium 7.1 L Phosphorus 5.6 H Magnesium 1.5 L Ferritin Total Bilirubin AST ALT Alkaline Phosphatase Troponin I High Sens Total Protein Albumin Globulin Albumin/Globulin Ratio Lipase TSH Urine Color Urine Clarity Urine pH Ur Specific [place] Urine Protein Urine Glucose (UA) Urine Ketones Urine Occult Blood Urine Nitrite Urine Bilirubin Urine Urobilinogen Ur Leukocyte Esterase Urine RBC Urine WBC Ur Squamous Epith Cells Amorphous Sediment Urine Bacteria Ur Microscopic Review Urine Culture Comments 03/12/19 03/12/19 03/12/19 00:40 00:40 00:40 WBC RBC Hgb Hct MCV MCH MCHC RDW Plt Count MPV Neut # (Auto) Lymph # (Auto) [place] # (Auto) Eos # (Auto) Baso # (Auto) Absolute Nucleated RBC Total Counted Band Neuts % (Manual) Abnorm Lymph % (Manual) Nucleated RBC % Neutrophils # (Manual) Lymphocytes # (Manual) Monocytes # (Manual) Eosinophils # (Manual) Basophils # (Manual) Differential Comment WBC Morphology Platelet Estimate Platelet Morphology RBC Morph Micro Appear ESR 12 PT INR APTT Sodium Potassium Chloride Carbon Dioxide Anion Gap BUN Creatinine Estimated GFR (MDRD) Glucose Lactic Acid Calcium Phosphorus Magnesium Ferritin 813.7 H Total Bilirubin AST ALT Alkaline Phosphatase Troponin I High Sens Total Protein Albumin Globulin Albumin/Globulin Ratio Lipase TSH 1.14 Urine Color Urine Clarity Urine pH Ur Specific [place] Urine Protein Urine Glucose (UA) Urine Ketones Urine Occult Blood Urine Nitrite Urine Bilirubin Urine Urobilinogen Ur Leukocyte Esterase Urine RBC Urine WBC Ur Squamous Epith Cells Amorphous Sediment Urine Bacteria Ur Microscopic Review Urine Culture Comments - Rads (name of study) CXR Radiology: Prelim report reviewed, See rad report CT A/P Radiology: Prelim report reviewed, See rad report PD MEDICAL DECISION MAKING - ED course Complexity details: reviewed old records, reviewed results, re-evaluated patient , considered differential, d/w patient, d/w family ED course: early in ED stay patient became hypotensive although this did not correlate with any change in symptoms (during entire ED stay, she only c/o generalized weakness and fatigue). She responded to fluid bolus (30mg/kg per sepsis protocol) although late in ED stay her blood pressure readings were trending down again. The etiology of her symptoms, hypotension, and marked abnormalities on blood tests (specifically, WBC over 50 and creatinine 2.9) remain unclear after ED testing. Admitted to hospitalist after I discussed the case with Dr. Blankenship. Dr. Valdivia graciously placed a triple-lumen CVC in right IJ while patient was in the ED. - Critical Care Time(min): 60 Time Includes: Direct patient care, Review records, Reassess patient, Document care, See progress note Data interpretation: Labs, Pulse ox, CXR, See progress note Procedures included in critical care time: See progress note Procedures excluded from critical care time: See progress note - Sepsis Event Current Stage of Sepsis: Severe sepsis Initial Hypotension: SBP less than 90 mmHg Persistent Hypotension: SBP less than 90 mmHg Possible source of Sepsis: Unknown Mental/Cognitive Status: Alert/Oriented X3, Other (remained awake, alert, oriented x 3, conversant and appropriate during ED stay) Capillary refill: Less than 2 seconds Bedside ultrasound performed: No Departure - Departure Disposition: 66 [facility] DC/Xfer Clinical Impression: Septic shock Condition: Serious Discharge Date/Time: 03/12/19 01:01
[2019-03-11] MEDS ORDERED: SODIUM CHLORIDE 0.9% 1,000 ML IV STA (21:14)
[2019-03-11] MEDS ORDERED: SODIUM CHLORIDE 0.9% 2,993.7 ML IV STA (21:17)
[2019-03-11] MEDS ORDERED: CEFEPIME 2 GM in SODIUM CHLORIDE 0.9% MINIBAG 100 ML IV STA (21:32)
[2019-03-11] MEDS ORDERED: VANCOMYCIN INJ 2.5 GM in SODIUM CHLORIDE 0.9% 500 ML IV STA (21:32)
[2019-03-11] MEDS ORDERED: metroNIDAZOLE 500 MG/100 ML 500 MG/100 ML BAG IV STA (21:32)
[2019-03-11 21:38] LABS: BASOPHILS % (AUTO) 0.2 %; EOSINOPHILS % (AUTO) 4.7 %; HGB - HEMOGLOBIN 12.4 g/dL (12.0-16.0); LYMPHOCYTES % (AUTO) 1.7 %; MEAN CORPUSCULAR HEMOGLOBIN 32.3 pg (27.0-31.0); MEAN CORPUSCULAR HGB CONC 32.8 g/dL (32.0-36.0); MEAN CORPUSCULAR VOLUME 98.4 fL (81.0-99.0); MEAN PLATELET VOLUME 9.8 fL (7.9-10.8); MONOCYTES % (AUTO) 4.6 %; NEUTROPHILS % (AUTO) 84.9 %; PLT - PLATELET COUNT 265 10^3/uL (130-450); RED BLOOD COUNT 3.84 10^6/uL (4.20-5.40); RED CELL DISTRIBUTION WIDTH 13.3 % (12.0-15.0)
[2019-03-11 21:42] LABS: WHITE BLOOD COUNT 58.4 x10^3/uL (4.8-10.8)
[2019-03-11 21:43] LABS: ABNORMAL LYMPHS % (MANUAL) 0 %; LYMPHOCYTES % (MANUAL) 0 %
[2019-03-11 21:44] LABS: INR 1.5 (0.8-1.2); PT - PROTHROMBIN TIME 17.4 secs (9.9-12.6)
[2019-03-11 21:53] LABS: ALBUMIN 2.9 g/dL (3.2-5.5); ALBUMIN/GLOBULIN RATIO 0.8 (1.0-2.2); ALKALINE PHOSPHATASE 132 IU/L (42-121); ALT ALANINE AMINOTRANSFERASE < 10 IU/L (10-60); AST ASPARTATE AMINOTRANSFERASE 13 IU/L (10-42); BILIRUBIN,TOTAL 0.6 mg/dL (0.2-1.0); BUN - BLOOD UREA NITROGEN 55 mg/dL (6-20); CALCIUM 8.4 mg/dL (8.5-10.3); CARBON DIOXIDE - CO2 16 mmol/L (21-32); CHLORIDE 92 mmol/L (101-111); CREATININE 2.9 mg/dL (0.4-1.0); GFR - MDRD 16 (>89); GLUCOSE 115 mg/dL (70-100); LIPASE 25 U/L (22-51); SODIUM 127 mmol/L (135-145); TOTAL PROTEIN 6.6 g/dL (6.7-8.2)
[2019-03-11 22:00] LABS: BAND NEUTROPHILS % (MANUAL) 31 %; DIFFERENTIAL COMMENT MANUAL DIFFERENTIAL; EOSINOPHILS # (MANUAL) 1.8 10^3/uL (0-0.7); MONOCYTES # (MANUAL) 3.5 10^3/uL (0.0-1.0); PLATELET ESTIMATE, MANUAL NORMAL (130-450,000) (NORMAL); PLATELET MORPHOLOGY NORMAL APPEARANCE (NORMAL); RBC MORPHOLOGY (MULTIPLE) NORMAL APPEARANCE (NORMAL)
--- NOTE | 2019-03-11 22:30 | CT Report ---
Reason: leukocytosis, abd. pain Procedure Date: 03/11/2019 Accession Number: [id number] / [id number] Procedure: CT - Abdomen/Pelvis WO CPT Code: FULL RESULT: EXAM: CT ABDOMEN AND PELVIS EXAM DATE: 03/11/2019 09:51 PM. CLINICAL HISTORY: Leukocytosis, abd. pain. COMPARISONS: None. TECHNIQUE: Routine helical CT imaging was performed through the abdomen and pelvis. IV contrast: None. Enteric contrast: No. Reconstructions: Coronal and sagittal. In accordance with CT protocol optimization, one or more of the following dose reduction techniques were utilized for this exam: automated exposure control, adjustment of mA and/or KV based on patient size, or use of iterative reconstructive technique. FINDINGS: Lung Bases: Multiple noncalcified pulmonary nodules at the lung bases, measuring from 3-11 mm, suspicious for pulmonary metastatic disease. Liver: Limited by lack of contrast. Possible mass at the dome of the right lobe of the liver. Gallbladder/Bile Ducts: Unremarkable. Spleen: Normal. Pancreas: Normal. Adrenal Glands: Normal. Kidneys: System the left kidney. No nephrolithiasis or hydronephrosis. Peritoneal Cavity/Bowel: No evidence of bowel obstruction or perforation. Multiple small peritoneal nodules, with the largest in the posterior perisplenic region, measuring up to 13 mm, suspicious for peritoneal metastases. Large anterior abdominal wall hernia in the lower anterior abdominal wall, containing multiple nonobstructed loops of bowel. The appendix is not confidently identified Pelvic Organs: Postoperative changes of hysterectomy. No pelvic adenopathy or free fluid. Vasculature: No aneurysms or other significant abnormality. Bones: No significant abnormality. Other: Likely postoperative seroma in the left breast. IMPRESSION: No evident etiology for patient's leukocytosis and abdominal pain. Large lower abdominal wall hernia, containing multiple nonobstructed loops of bowel. Multiple noncalcified pulmonary nodules and peritoneal nodules, suspicious for metastatic disease. RADIA
[2019-03-11 22:40] LABS: BILIRUBIN,URINE NEGATIVE (NEGATIVE); CLARITY,URINE HAZY (CLEAR); GLUCOSE, URINE (UA) NEGATIVE (NEGATIVE); KETONES,URINE (UA) NEGATIVE (NEGATIVE); LEUKOCYTE ESTERASE, URINE NEGATIVE (NEGATIVE); NITRITE,URINE NEGATIVE (NEGATIVE); OCCULT BLOOD,URINE NEGATIVE (NEGATIVE); PROTEIN,URINE 30 mg/dL (NEGATIVE); UROBILINOGEN,URINE 0.2 (NORMAL) E.U./dL (NORMAL)
--- NOTE | 2019-03-11 22:40 | XRAY Report ---
Reason: sepsis and post-CVC placement Procedure Date: 03/11/2019 Accession Number: [id number] / [id number] Procedure: XR - Chest for Line Placement CPT Code: FULL RESULT: EXAM: CHEST RADIOGRAPHY EXAM DATE: 03/11/2019 10:26 PM. CLINICAL HISTORY: Sepsis and post-CVC placement. COMPARISON: CHEST 2 VIEW 03/11/2019 10:57 AM. TECHNIQUE: 1 view. FINDINGS: Lungs/Pleura: No dense consolidation. No large effusion or pneumothorax. No pulmonary edema. Mediastinum: Cardiac silhouette is mildly enlarged. Other: Right IJ line tip in the proximal right atrium. IMPRESSION: Right IJ line tip in the proximal right atrium. RADIA
[2019-03-11 22:48] LABS: AMORPHOUS SEDIMENT,UR Marked /LPF; RBC,URINE None Seen /HPF (0-5); SQUAMOUS EPITHELIAL CELL,UR NONE SEEN (<= Few)
[2019-03-11 22:49] LABS: BACTERIA,URINE Rare /HPF (None Seen)
--- NOTE | 2019-03-11 22:50 | ED Physician Documentation ---
ED Addendum - Addendum Addendum: 03/11/19 22:44 I was asked by Dr Rose to place a central line in this lady due to hy potension. Informed consent (written was obtained) R neck was prepped 2x with chloraprep and draped. Using full sterile precautions (cap/mask/gown/gloves) the R IJ was accessed after local lidocaine with real time ultrasound guidance. Using seldinger a 7F triple lumen catheter was inserted and flushed. On xray it was a bit deep and pulled back about 3-4 cm. No immediate complications.
[2019-03-12] MEDS ORDERED: ONDANSETRON 4 MG/2 ML VIAL IVP PRN (00:22)
[2019-03-12] MEDS ORDERED: ACETAMINOPHEN 325 MG TABLET PO PRN (00:22)
[2019-03-12 00:48] LABS: BASOPHILS % (AUTO) 0.2 %; EOSINOPHILS % (AUTO) 4.9 %; HGB - HEMOGLOBIN 10.8 g/dL (12.0-16.0); LYMPHOCYTES % (AUTO) 2.2 %; MEAN CORPUSCULAR HEMOGLOBIN 33.1 pg (27.0-31.0); MEAN CORPUSCULAR HGB CONC 33.3 g/dL (32.0-36.0); MEAN CORPUSCULAR VOLUME 99.4 fL (81.0-99.0); MEAN PLATELET VOLUME 9.2 fL (7.9-10.8); MONOCYTES % (AUTO) 3.8 %; NEUTROPHILS % (AUTO) 83.9 %; PLT - PLATELET COUNT 217 10^3/uL (130-450); RED BLOOD COUNT 3.26 10^6/uL (4.20-5.40); RED CELL DISTRIBUTION WIDTH 13.2 % (12.0-15.0)
--- NOTE | 2019-03-12 00:49 | HISTORY & PHYSICAL EXAMINATION ---
Chief Complaint - Chief Complaint Chief Complaint: Abnormal labs and fatigue History of Present Illness - Admitted From Admitted From:: Home - History Obtained From Records Reviewed: Yes History obtained from: Patient, Spouse, ER Physician, EMR - History of Present Illness HPI Comment/Other: This is a 74 year old female with a past medical history significant for hypertension, breast cancer, and endometrial cancer who presents from home after she was found to have abnormal labs yesterday. The patient reports feeling fatigued over the last two weeks with poor oral intake, weight loss, and nonproductive cough. She denies fevers, chills, diarrhea, chest pain, dyspnea, dysuria, and urgency. She saw her primary care physician yesterday because of these symptoms and blood work was obtained which revealed a white count of 58,000 and therefore she was referred to the emergency department. She reports her weakness has really progressed over the last two days to the point where she has not left the house. She usually ambulates with a walker but today her had to get her a wheelchair. She states she usually checks her blood pressure at home and it has been controlled in the 120's. She did not check her blood pressure today. She has continued to take all of her home medications despite her symptoms these past two weeks. In the ER, she was not febrile or tachycardic but was found to be initially hypotensive with systolics in the 80's. Labs were repeated which showed a white count of 58,000 that are predominantly neutrophils and 31% bands. Her creatinine was elevated at 2.9 and her sodium was decreased as 127. Lactic acid was normal. Her EKG was unchanged compared to her prior EKG and showed a sinus rhythm with low voltage and no ischemic changes. A CT of the abdomen/pelvis was performed which showed no acute process although there was concern for possible metastatic disease as there were a few pulmonary and peritoneal nodules. There was also a mention of a possible liver mass at the dome of the right lobe of the liver. The patient will be admitted for further management given her leukocytosis and hypotension. Of note, I did speak with the patient regarding goals of care. Prior documenation stated that she was a DNR/DNI. I asked her if this still her wish but she stated that she would like heroic measures if necessary. History - Past Medical History Cardiovascular: reports: Hypertension, High cholesterol, Murmur Respiratory: reports: None Endocrine/Autoimmune: reports: None GI: reports: Colon polyps [employer] ARC: reports: Uterine cancer, Breast cancer : reports: Frequency HEENT: reports: Chronic vision loss Psych: reports: None, Depression Musculoskeletal: reports: Osteoarthritis, Chronic back pain, Other Derm: reports: None MRSA Hx?: No - Past Surgical History General: reports: Appendectomy, Colonoscopy Ortho: reports: Knee replacement, Other /[employer] ARC: reports: Hysterectomy HEENT: - Family & Social History Family History Comment/Other: She reports that her mother from ovarian cancer. She reports no other known medical history. Living arrangement: At home Living Situation: With spouse/s.o. Social History Notes: She has lived on [facility] for the past 28 years with her , Rebel. They are now retired but previously own a computer business an d lived in the [place] before they moved to [facility]. She does not smoke. She does drink a glass of wine at times with dinner. Denies drug use. - Substance History Use: Uses substance without health or social issues: Alcohol - POLST Patient has POLST: No Meds/Allgy - Home Medications Home Medications: Ambulatory Orders Medication Instructions Recorded Confirmed Benazepril/Hydrochlorothiazide 1 each PO BID 01/07/13 04/15/17 [Benazepril-Hctz 20-12.5 mg Tab] Cholecalciferol (Vitamin D3) 1,000 unit PO DAILY 01/07/13 04/15/17 [Vitamin D3] Multivitamin [Multivitamins] 1 each PO DAILY 01/07/13 04/15/17 Simvastatin 40 mg PO HS 01/07/13 04/15/17 Sertraline [Zoloft] 50 mg PO DAILY 12/18/13 04/15/17 Beta-Carotene [Beta Carotene] 25,000 unit PO DAILY 01/10/15 04/15/17 Calcium Citrate 1 tab PO DAILY 01/10/15 04/15/17 Omeprazole 20 mg PO DAILY 01/10/15 04/15/17 Vitamin E 400 unit PO DAILY 01/10/15 04/15/17 Metoprolol Tartrate 25 mg PO BID 06/18/16 04/15/17 Acetaminophen [Tylenol] 650 - 975 mg PO Q4HR PRN #0 tablet 12/08/16 09/26/17 Docusate Sodium 250Mg Capsule 250 - 500 mg PO DAILY #60 capsule 06/21/16 04/15/17 [Colace 250Mg Capsule] Acetaminophen [Tylenol] 650 - 975 mg PO Q4HR PRN tablet 04/19/17 Docusate Sodium 250Mg Capsule 250 - 500 mg PO DAILY #14 capsule 04/19/17 [Colace 250Mg Capsule] oxyCODONE/ACET 5/325 [Percocet 5 1 tab PO Q4HR PRN #20 tablet 04/19/17 mg/325 mg] - Allergies Allergies/Adverse Reactions: Allergies Allergy/AdvReac Type Severity Reaction Status Date / Time clindamycin Allergy Hives Verified 03/11/19 20:35 Sulfa (Sulfonamide Allergy Hives Verified 03/11/19 20:35 Antibiotics) Review of Systems - Constitutional Constitutional: reports: Fatigue, Malaise, Weakness, Poor appetite, Weight loss. denies: Fever, Chills - Cardiovascular Cariovascular: denies: Chest pain, Exertional dyspnea, Decr. exercise tolerance - Respiratory Respiratory: reports: Cough. denies: Sputum production, SOB at rest, SOB with exertion - Gastrointestinal Gastrointestinal: reports: Abdominal pain, Nausea. denies: Constipation, Diarrh ea, Change in bowel habits, Black stools, Bloody stools, Vomiting - Genitourinary Genitourinary: denies: Dysuria, Frequency, Urgency - Integumentary Integumentary: denies: Rash - Neurological Neurological: reports: General weakness. denies: Focal weakness - Hematologic/Lymphatic Hematologic/Lymphatic: denies: Anemia, Bruising, Bleeding tendencies - All Other Systems All Other Systems: reports: Reviewed and negative Prior Level of Functionality: Independent with ADL's. Ambulates with a walker at baseline. Exam - Vital Signs Reviewed Vital Signs: Yes Vital Signs: Vital Signs x48h Temp Pulse Resp BP Pulse Ox 03/12/19 00:15 78 21 80/38 L 95 03/12/19 00:00 76 16 88/42 L 95 03/11/19 23:00 78 18 97/78 95 03/11/19 22:30 78 16 112/89 H 93 03/11/19 22:00 79 16 102/80 93 03/11/19 21:34 81 75/63 L 03/11/19 21:30 84 83/55 L 03/11/19 21:05 83 77/47 L 03/11/19 20:33 86 19 100/53 L 96 03/11/19 20:32 36.3 C L 86 19 100/53 L 96 - Physical Exam General Appearance: positive: No acute distress, Alert ENT: positive: Dry mucous membranes. negative: No signs of dehydration Neck: positive: Nml inspection Respiratory: positive: No respiratory distress. negative: Wheezes, Rales, Rhonchi Cardiovascular: positive: Regular rate & rhythm, Systolic murmur. negative: Tachycardia, Bradycardia Abdomen: positive: Nml bowel sounds, Tenderness (Mild diffuse tenderness), Other. negative: No distention, Guarding, Rebound Skin: positive: No rash, Warm, Dry Extremities: positive: Non-tender, No pedal edema Neurologic/Psychiatric: positive: Oriented x3, Other (No focal motor deficits). negative: Disoriented to person, Disoriented to place, Disoriented to time, Weakness Sepsis Event Note (H) - Evaluation Current Stage of Sepsis: Septic shock Possible source of Sepsis: positive: Unknown - Sepsis Criteria Sepsis Criteria: WBC count greater than 10% bands, WBC count greater than 12,000 or less than 4000, SBP less than 90 mmHg, Renal: urine output less than 0.5ml/kg/hr for 2 hours or creatinine gr Conclusion/Plan - Problem List (1) Septic shock Conclusion/Plan: She has evidence of sepsis with septic shock from an unclear source. Presented with significant leukocytosis that is predominantly neutrophils and >30% bands. Also has evidence of end organ dysfunction given her elevated creatinine. She is also hypotensive requiring levophed despite resuscitation with IV fluids. Urinalysis and chest x-ray are unremarkable. CT of the abdomen/pelvis also without obvious source of infection. - Continue Vancomycin, Cefepime, Flagyl IV for broad spectrum coverage given there is no clear source of infection - Levophed for goal MAP >65 - Follow up blood cultures - Check C diff although she is not have diarrhea as severe C diff present with ileus and severe leukocytosis - Trend white count - Check ESR and CRP (2) Neutrophilia Conclusion/Plan: She has significant neutrophilia with over 30% bands which is concerning for an infectious process although there is no obvious source at this time. This could also be CML but her spleen is of normal size on the CT of the abdomen/pelvis. She does not have associated anemia or thrombocytopenia. She no lympocytes or basophils on her diff as well. - Will treat with IV antibiotics in hopes that her white count will improve - Infectious work up - Check OLIVIER, ESR, CRP - Trend white count - I have a call out to Heme/Onc to discuss this problem (3) Acute kidney injury Conclusion/Plan: Suspect this is likely pre-renal given her poor oral intake and that she appears dehydrated on exam. Creatinine elevated at 2.9 and baseline appears to be 0.6 from her most recent labs. - IV hydration - Hold ACEi - Monitor renal function and urine output (4) Hyponatremia Conclusion/Plan: This is likely hypovolemic hyponatremia given her poor oral intake and use of hydrochlorothiazide. Sodium decreased at 127. - This should improve with IV hydration - Hold HCTZ - Will check urine lytes and osmolality if no improvement with hydration (5) Coagulopathy Conclusion/Plan: Her INR is elevated at 1.5 with no signs of bleeding. She is not on coumadin and her LFT's are normal. This may be vitamin K deficiency if she truly has had poor oral intake over these last few days. Less likely to be DIC given her normal platelet count and no signs of bleeding. - Trend INR - Will consider oral vitamin K if INR increases (6) Hypertension Conclusion/Plan: She is currently hypotensive likely due to sepsis. She is on ACEi and HCTZ at home. - Hold home medications in setting of septic shock (7) Depression Conclusion/Plan: She is on Sertraline at home. Stable. - Continue Sertraline (8) History of breast cancer Conclusion/Plan: Diagnosed in 2009 and she underwent left lumpectomy followed by radiation. Was treated with endocrine therapy for less than two years as she did not tolerate it well. (9) History of endometrial cancer Conclusion/Plan: Diagnosed in 2002 and she underwent hysterectomy followed by brachytherapy. - Lab Results Lab results reviewed: Yes Fish Bones: 03/12/19 00:40 03/12/19 00:40 - Diagnostic Imaging Results Diagnostic Imaging Results: positive: Final report reviewed - EKG Results EKG Comparison: Unchanged from prior EKG EKG Findings: Sinus rhythm with low voltage. No obvious ischemic changes. Core Measures - Anticipated LOS I expect patient to be DC'd or transferred within 96 hours.: Yes - Issues Hospital Issues and Management Plan: Sepsis with septic shock of unclear etiology. Requires broad spectrum antibiotics, pressors, and IV hydration. Significant neurophilia of unclear etiology. - DVT/VTE - Prophylaxis VTE/DVT Device ordered at admit?: Yes VTE/DVT Prophylaxis med ordered at admit?: Yes
[2019-03-12 01:02] LABS: CALCIUM 7.1 mg/dL (8.5-10.3); CREATININE 2.2 mg/dL (0.4-1.0); MAGNESIUM 1.5 mg/dL (1.7-2.8); PHOSPHORUS 5.6 mg/dL (2.5-4.6)
[2019-03-12 01:04] LABS: INR 1.7 (0.8-1.2); PT - PROTHROMBIN TIME 19.1 secs (9.9-12.6)
[2019-03-12 01:06] LABS: WHITE BLOOD COUNT 44.6 x10^3/uL (4.8-10.8)
[2019-03-12 01:07] LABS: ABNORMAL LYMPHS % (MANUAL) 0 %
[2019-03-12] MEDS ORDERED: POTASSIUM CHLOR 20 MEQ/100 ML 20 MEQ/100 ML BAG IV ONE (01:10)
[2019-03-12] MEDS ORDERED: MAGNESIUM SULFATE 2 GRAM 2 GM/50 ML BAG IV ONE (01:15)
[2019-03-12 01:26] LABS: BAND NEUTROPHILS % (MANUAL) 27 %; DIFFERENTIAL COMMENT MANUAL DIFFERENTIAL; EOSINOPHILS # (MANUAL) 4.5 10^3/uL (0-0.7); LYMPHOCYTES # (MANUAL) 0.9 10^3/uL (1.5-3.5); LYMPHOCYTES % (MANUAL) 2 %; MONOCYTES # (MANUAL) 0.9 10^3/uL (0.0-1.0); PLATELET ESTIMATE, MANUAL NORMAL (130-450,000) (NORMAL); RBC MORPHOLOGY (MULTIPLE) NORMAL APPEARANCE (NORMAL)
[2019-03-12] MEDS: SODIUM CHLORIDE FLUSH 0.9% 10 ML SYRINGE IVP PRN ×2 (01:42→01:54)
[2019-03-12] MEDS: LACTATED RINGERS 1,000 ML IV SCH ×2 (01:44→12:08)
[2019-03-12] MEDS ORDERED: SODIUM CHLORIDE FLUSH 0.9% 10 ML SYRINGE IVP PRN (02:02)
[2019-03-12] MEDS: SODIUM CHLORIDE FLUSH 0.9% 10 ML SYRINGE IVP SCH ×2 (02:28→10:00)
[2019-03-12] MEDS ORDERED: SODIUM CHLORIDE 0.9% 500 ML IV PRN (02:46)
[2019-03-12] MEDS: metroNIDAZOLE 500 MG/100 ML 500 MG/100 ML BAG IV SCH ×2 (05:20→13:24)
--- NOTE | 2019-03-12 08:13 | PROVIDER PROGRESS NOTE ---
Assessment/Plan - Problem List (1) Shock Assessment/Plan: It is still unclear if this is hypovolemic or septic shock, not cardiogenic shock with normal troponin. Continue crystalloid repleacement. Continue iv levophed for BP support, titrating to keep MAP >65 mmHg. She has a large bore central iv access. TSH was normal, ruling out Hypothyroid and Myxedema. Will check a.m. Cortisol for Varghese's crisis as a cause of low BPContinue empiric antibiotics. Cultures of blood and urine are pending. Will reach out to Technical Consultant at [facility] to accept the patient for transfer to higher level of care: she needs Technical Consultant, Customer Experience Analyst for [employer], ID specialist and Heme/Onc specialist. CRITIAL CARE TIME SPENT: 30 min (2) Widened pulse pressure Assessment/Plan: Concern for aortic regurgitation. Echo ordered. (3) JAMAAL (acute kidney injury) Assessment/Plan: Improving with iv hydration and urine output is 25-50cc/hr Jean for I's and O's (4) Leukocytosis Qualifiers: Leukocytosis type: bandemia Qualified Code(s): D72.825 - Bandemia Assessment/Plan: WBC 58K on admission, dropped slightly to 44K, then has increased to 65K today. She had no fever, no elevated lactic acid, and no obvious source of an infection found yet: normal CXR and U/A. Will plan to recheck CXR, which may blossom with an infiltrate after hydration. Will check Lyme titers. Will obtain Echo to evaluate for endocarditis, especially with the murmur and wide pulse pressure, making /AI a concern. Continue empiric antibiotics with iv Vanco, Cefepime and Flagyl. She may need additional coverage for atypical bacteria, using Zithromax. Will reach out to Technical Consultant at [facility] to accept the patient for transfer to higher level of care: she needs Technical Consultant, Customer Experience Analyst for [employer], ID specialist and Heme/Onc specialist. This was all reviewed with the patient and her at bedside. (5) Coagulopathy Assessment/Plan: INR elevated at 1.5-1.7. No vit K given yet, as no signs of blood loss. Follow INR. (6) Hyponatremia Assessment/Plan: This was felt to be hypovolemic hyponatremia and is improving with iv saline. No elevated glu, to explain as pseudohyponatremia. Will check urine Na. (7) Hypomagnesemia Assessment/Plan: She had poor po intake, likely explaining low Mg, despite JAMAAL. Replace with ICU protocol and follow. (8) Hypokalemia Assessment/Plan: Replace and follow. (9) Depression Assessment/Plan: Pt on her home meds (10) Hx of essential hypertension Assessment/Plan: He home BP meds are on hold - Current Meds Current Meds: Current Medications Generic Name Dose Route Start Last Admin Trade Name Freq PRN Reason Stop Dose Admin Lactated Ringer's 1,000 mls @ 100 mls/hr 03/12/19 01:00 03/12/19 07:00 Lr IV 100 mls/hr .Q10H JARRED Infusion Norepinephrine Bitartrate 8 mg 250 mls @ 15 mls/hr 03/12/19 01:00 03/12/19 07:00 / Dextrose IV 12 mcg/min .[id number] JARRED 22.5 mls/hr Titration Protocol 8 MCG/MIN Metronidazole 500 mg in 100 mls @ 100 mls/hr 03/12/19 05:00 03/12/19 06:20 Flagyl 500 Mg/100 Ml IV Infused Q8H JARRED Infusion Sodium Chloride 500 mls @ 0 mls/hr 03/12/19 02:46 03/12/19 07:00 Normal Saline 0.9% IV 20 mls/hr Q24H PRN Infusion TKO RATE TKO Sodium Chloride 10 ml 03/12/19 01:00 03/12/19 02:28 Normal Saline Flush 0.9% IVP Not Given 0100,0900,1700 JARRED Sodium Chloride 10 ml 03/12/19 00:22 03/12/19 01:54 Normal Saline Flush 0.9% IVP 20 ml PRN PRN Administration NEEDED PER PROVIDER ORDERS - Lab Result Fish Bone Diagrams: 03/12/19 09:58 03/12/19 09:58 Other Lab Results: Her Benazipril/HCTZ and Metoprolol are on hold while she is hypotensive. Subjective - Subjective Patient Reports: Feeling Better, Resting Comfortably Objective Vital Signs: Vital Signs - 24 hr 03/11/19 03/11/19 03/11/19 20:32 20:33 21:05 Temperature 36.3 C L Heart Rate 86 86 83 Heart Rate [ Monitoring electrodes] Respiratory 19 19 Rate Blood Pressure 100/53 L 100/53 L 77/47 L Blood Pressure [Right Brachial artery] O2 Saturation 96 96 03/11/19 03/11/19 03/11/19 21:30 21:34 22:00 Temperature Heart Rate 84 81 79 Heart Rate [ Monitoring electrodes] Respiratory 16 Rate Blood Pressure 83/55 L 75/63 L 102/80 Blood Pressure [Right Brachial artery] O2 Saturation 93 03/11/19 03/11/19 03/12/19 22:30 23:00 00:00 Temperature Heart Rate 78 78 76 Heart Rate [ Monitoring electrodes] Respiratory 16 18 16 Rate Blood Pressure 112/89 H 97/78 88/42 L Blood Pressure [Right Brachial artery] O2 Saturation 93 95 95 03/12/19 03/12/19 03/12/19 00:15 00:45 01:30 Temperature 36.7 C Heart Rate 78 Heart Rate [ Monitoring electrodes] Respiratory 21 Rate Blood Pressure 80/38 L 77/60 L Blood Pressure [Right Brachial artery] O2 Saturation 95 03/12/19 03/12/19 03/12/19 02:00 02:05 02:10 Temperature Heart Rate Heart Rate [ 73 73 73 Monitoring electrodes] Respiratory 15 15 15 Rate Blood Pressure Blood Pressure 62/49 L 90/57 L 96/50 L [Right Brachial artery] O2 Saturation 94 94 94 03/12/19 03/12/19 03/12/19 02:15 02:20 02:25 Temperature Heart Rate Heart Rate [ 74 76 75 Monitoring electrodes] Respiratory 14 15 14 Rate Blood Pressure Blood Pressure 94/54 L 93/39 L 93/43 L [Right Brachial artery] O2 Saturation 95 94 94 03/12/19 03/12/19 03/12/19 02:30 02:40 02:50 Temperature Heart Rate Heart Rate [ 75 73 74 Monitoring electrodes] Respiratory 14 15 17 Rate Blood Pressure Blood Pressure 92/50 L 92/50 L 94/42 L [Right Brachial artery] O2 Saturation 93 92 92 03/12/19 03/12/19 03/12/19 02:55 03:00 03:05 Temperature Heart Rate Heart Rate [ 73 73 74 Monitoring electrodes] Respiratory 15 15 16 Rate Blood Pressure Blood Pressure 98/85 H 87/29 L 79/67 L [Right Brachial artery] O2 Saturation 94 92 94 03/12/19 03/12/19 03/12/19 03:10 03:15 03:20 Temperature Heart Rate Heart Rate [ 73 73 74 Monitoring electrodes] Respiratory 16 15 15 Rate Blood Pressure Blood Pressure 95/46 L 88/48 L 102/47 L [Right Brachial artery] O2 Saturation 93 94 93 03/12/19 03/12/19 03/12/19 03:25 03:30 03:35 Temperature Heart Rate Heart Rate [ 73 74 73 Monitoring electrodes] Respiratory 16 16 15 Rate Blood Pressure Blood Pressure 103/49 L 95/49 L 102/39 L [Right Brachial artery] O2 Saturation 94 94 92 03/12/19 03/12/19 03/12/19 03:40 03:55 04:00 Temperature Heart Rate Heart Rate [ 73 74 74 Monitoring electrodes] Respiratory 15 16 16 Rate Blood Pressure Blood Pressure 94/36 L 101/48 L 103/80 [Right Brachial artery] O2 Saturation 92 94 94 03/12/19 03/12/19 03/12/19 04:15 04:30 04:45 Temperature Heart Rate Heart Rate [ 74 74 73 Monitoring electrodes] Respiratory 16 15 16 Rate Blood Pressure Blood Pressure 100/46 L 101/42 L 104/45 L [Right Brachial artery] O2 Saturation 92 94 94 03/12/19 03/12/19 03/12/19 05:00 06:00 06:30 Temperature 36.5 C Heart Rate Heart Rate [ 73 72 Monitoring electrodes] Respiratory 16 16 Rate Blood Pressure Blood Pressure 95/49 L 107/43 L [Right Brachial artery] O2 Saturation 93 03/12/19 03/12/19 07:00 07:03 Temperature Heart Rate Heart Rate [ 72 Monitoring electrodes] Respiratory 18 Rate Blood Pressure Blood Pressure 93/34 L 105/35 L [Right Brachial artery] O2 Saturation Oxygen O2 Source Room air I&O (Last 24 Hrs): Intake and Output Totals x24h 03/10/19 03/11/19 03/12/19 23:59 23:59 23:59 Intake Total 3193.7 1430.959 Output Total 1560 Balance 3193.7 -129.041 General: Alert, Oriented x3, Other (Flushed cheeks) HEENT: Atraumatic Neck: Supple Neuro: Non Focal Cardiovascular: Regular rate, Other (PMI laterally displaced, 2/6 murmur) Respiratory: No respiratory distress Abdomen: Soft Extremities: No edema - Results Results: Laboratory Results WBC 44.6 x10^3/uL (4.8-10.8) H* 03/12/19 00:40 RBC 3.26 10^6/uL (4.20-5.40) L 03/12/19 00:40 Hgb 10.8 g/dL (12.0-16.0) L 03/12/19 00:40 Hct 32.4 % (37.0-47.0) L 03/12/19 00:40 MCV 99.4 fL (81.0-99.0) H 03/12/19 00:40 MCH 33.1 pg (27.0-31.0) H 03/12/19 00:40 MCHC 33.3 g/dL (32.0-36.0) 03/12/19 00:40 RDW 13.2 % (12.0-15.0) 03/12/19 00:40 Plt Count 217 10^3/uL (130-450) 03/12/19 00:40 MPV 9.2 fL (7.9-10.8) 03/12/19 00:40 Neut # (Auto) Not Reportable 03/12/19 00:40 Lymph # (Auto) Not Reportable 03/12/19 00:40 [place] # (Auto) Not Reportable 03/12/19 00:40 Eos # (Auto) Not Reportable 03/12/19 00:40 Baso # (Auto) Not Reportable 03/12/19 00:40 Absolute Nucleated RBC Not Reportable 03/12/19 00:40 Total Counted 100 03/12/19 00:40 Band Neuts % (Manual) 27 % (0-10) H 03/12/19 00:40 Abnorm Lymph % (Manual) 0 % 03/12/19 00:40 Nucleated RBC % Not Reportable 03/12/19 00:40 Neutrophils # (Manual) 38.4 10^3/uL (1.5-6.6) H 03/12/19 00:40 Lymphocytes # (Manual) 0.9 10^3/uL (1.5-3.5) L 03/12/19 00:40 Monocytes # (Manual) 0.9 10^3/uL (0.0-1.0) 03/12/19 00:40 Eosinophils # (Manual) 4.5 10^3/uL (0-0.7) H 03/12/19 00:40 Basophils # (Manual) 0.0 10^3/uL (0-0.1) 03/12/19 00:40 Differential Comment MANUAL DIFFERENTIAL 03/12/19 00:40 WBC Morphology NORMAL APPEARANCE (NORMAL) 03/11/19 21:32 Platelet Estimate NORMAL (130-450,000) (NORMAL) 03/12/19 00:40 Platelet Morphology NORMAL APPEARANCE (NORMAL) 03/11/19 21:32 RBC Morph Micro Appear NORMAL APPEARANCE (NORMAL) 03/12/19 00:40 ESR 12 mm/Hr (0-30) 03/12/19 00:40 PT 19.1 secs (9.9-12.6) H 03/12/19 00:40 INR 1.7 (0.8-1.2) H 03/12/19 00:40 APTT 26.5 secs (24.9-33.3) 03/12/19 05:00 Sodium 132 mmol/L (135-145) L 03/12/19 00:40 Potassium 3.3 mmol/L (3.5-5.0) L 03/12/19 00:40 Chloride 103 mmol/L (101-111) 03/12/19 00:40 Carbon Dioxide 17 mmol/L (21-32) L 03/12/19 00:40 Anion Gap 12.0 (6-13) 03/12/19 00:40 BUN 53 mg/dL (6-20) H 03/12/19 00:40 Creatinine 2.2 mg/dL (0.4-1.0) H 03/12/19 00:40 Estimated GFR (MDRD) 22 (>89) L 03/12/19 00:40 Glucose 87 mg/dL (70-100) 03/12/19 00:40 POC Whole Bld Glucose 93 mg/dL (70 - 100) 03/12/19 06:48 Lactic Acid 1.2 mmol/L (0.5-2.2) 03/11/19 21:32 Calcium 7.1 mg/dL (8.5-10.3) L 03/12/19 00:40 Phosphorus 5.6 mg/dL (2.5-4.6) H 03/12/19 00:40 Magnesium 1.5 mg/dL (1.7-2.8) L 03/12/19 00:40 Ferritin 813.7 ng/mL (11.0-306.8) H 03/12/19 00:40 Total Bilirubin 0.6 mg/dL (0.2-1.0) 03/11/19 21:32 AST 13 IU/L (10-42) 03/11/19 21:32 ALT < 10 IU/L (10-60) L 03/11/19 21:32 Alkaline Phosphatase 132 IU/L (42-121) H 03/11/19 21:32 Troponin I High Sens 8.0 pg/mL (2.3-14.8) 03/12/19 00:40 C-Reactive Protein 19.0 mg/dL (0-1.0) H 03/12/19 05:00 Total Protein 6.6 g/dL (6.7-8.2) L 03/11/19 21:32 Albumin 2.9 g/dL (3.2-5.5) L 03/11/19 21:32 Globulin 3.7 g/dL (2.1-4.2) 03/11/19 21:32 Albumin/Globulin Ratio 0.8 (1.0-2.2) L 03/11/19 21:32 Lipase 25 U/L (22-51) 03/11/19 21:32 TSH 1.14 uIU/mL (0.34-5.60) 03/12/19 00:40 Urine Color YELLOW 03/11/19 22:32 Urine Clarity HAZY (CLEAR) 03/11/19 22:32 Urine pH 5.0 PH (5.0-7.5) 03/11/19 22:32 Ur Specific [place] >=1.030 (1.002-1.030) H 03/11/19 22:32 Urine Protein 30 mg/dL (NEGATIVE) H 03/11/19 22:32 Urine Glucose (UA) NEGATIVE mg/dL (NEGATIVE) 03/11/19 22:32 Urine Ketones NEGATIVE mg/dL (NEGATIVE) 03/11/19 22:32 Urine Occult Blood NEGATIVE (NEGATIVE) 03/11/19 22:32 Urine Nitrite NEGATIVE (NEGATIVE) 03/11/19 22:32 Urine Bilirubin NEGATIVE (NEGATIVE) 03/11/19 22:32 Urine Urobilinogen 0.2 (NORMAL) E.U./dL (NORMAL) 03/11/19 22:32 Ur Leukocyte Esterase NEGATIVE (NEGATIVE) 03/11/19 22:32 Urine RBC None Seen /HPF (0-5) 03/11/19 22:32 Urine WBC 0-3 /HPF (0-5) 03/11/19 22:32 Ur Squamous Epith Cells NONE SEEN (<= Few) 03/11/19 22:32 Amorphous Sediment Marked /LPF 03/11/19 22:32 Urine Bacteria Rare /HPF (None Seen) 03/11/19 22:32 Ur Microscopic Review INDICATED 03/11/19 22:32 Urine Culture Comments NOT INDICATED 03/11/19 22:32 Nasal Screen MRSA (PCR) NEGATIVE (NEGATIVE) 03/12/19 01:45 - Procedures Procedures: Procedures ENDOSC POLYPECTOMY OF LG INTEST (12/18/13) INJECT/INFUSE NEC (12/18/13) INSERTION OF INT FIX INTO R FIBULA, OPEN APPROACH (08/06/15) REPLACE OF L KNEE JT WITH SYNTH SUB, CEMENT, OPEN APPROACH (04/15/17) REPLACE OF R KNEE JT WITH SYNTH SUB, CEMENT, OPEN APPROACH (06/18/16) REPOSITION RIGHT ANKLE JOINT WITH INT FIX, OPEN APPROACH (08/06/15) Sepsis Event Note (H) - Evaluation Current Stage of Sepsis: Septic shock Possible source of Sepsis: positive: Unknown - Sepsis Criteria Sepsis Criteria: WBC count greater than 10% bands, WBC count greater than 12,000 or less than 4000, SBP less than 90 mmHg, Renal: urine output less than 0.5ml/kg/hr for 2 hours or creatinine gr
[2019-03-12] MEDS ORDERED: HEPARIN 5,000 UNIT/ML VIAL SUBQ SCH (09:00)
[2019-03-12] MEDS ORDERED: CEFEPIME 2 GM in SODIUM CHLORIDE 0.9% MINIBAG 100 ML IV SCH (09:00)
[2019-03-12] MEDS ORDERED: SERTRALINE 50 MG TABLET PO SCH (09:00)
[2019-03-12 10:11] LABS: BASOPHILS % (AUTO) 0.1 %; HGB - HEMOGLOBIN 12.5 g/dL (12.0-16.0); LYMPHOCYTES % (AUTO) 0.9 %; MEAN CORPUSCULAR HEMOGLOBIN 33.2 pg (27.0-31.0); MEAN CORPUSCULAR HGB CONC 33.2 g/dL (32.0-36.0); MEAN PLATELET VOLUME 9.2 fL (7.9-10.8); MONOCYTES % (AUTO) 3.4 %; NEUTROPHILS % (AUTO) 85.8 %; PLT - PLATELET COUNT 257 10^3/uL (130-450); RED BLOOD COUNT 3.77 10^6/uL (4.20-5.40); RED CELL DISTRIBUTION WIDTH 13.4 % (12.0-15.0)
[2019-03-12 10:19] LABS: CALCIUM 7.5 mg/dL (8.5-10.3); CREATININE 1.6 mg/dL (0.4-1.0)
[2019-03-12 10:24] LABS: ABNORMAL LYMPHS % (MANUAL) 0 %
[2019-03-12 10:41] LABS: BAND NEUTROPHILS % (MANUAL) 8 %; EOSINOPHILS # (MANUAL) 7.2 10^3/uL (0-0.7); LYMPHOCYTES # (MANUAL) 3.9 10^3/uL (1.5-3.5); LYMPHOCYTES % (MANUAL) 6 %; MONOCYTES # (MANUAL) 1.3 10^3/uL (0.0-1.0)
[2019-03-12 10:44] LABS: PLATELET ESTIMATE, MANUAL NORMAL (130-450,000) (NORMAL); PLATELET MORPHOLOGY RARE GIANT PLATELETS (NORMAL); RBC MORPHOLOGY (MULTIPLE) NORMAL APPEARANCE (NORMAL)
[2019-03-12 10:46] LABS: DIFFERENTIAL COMMENT MANUAL DIFFERENTIAL
[2019-03-12] MEDS ORDERED: FAMOTIDINE 20 MG TABLET PO SCH (11:00)
[2019-03-12] MEDS: POTASSIUM CHLOR 20 MEQ/100 ML 20 MEQ/100 ML BAG IV SCH ×2 (11:04→12:05)
--- NOTE | 2019-03-12 11:45 | Ultrasound Report ---
Reason: Liver mass on CT? Procedure Date: 03/12/2019 Accession Number: [id number] / [id number] Procedure: US - Abdomen Limited CPT Code: FULL RESULT: EXAM: ABDOMEN ULTRASOUND LIMITED, RUQ EXAM DATE: 03/12/2019 08:28 AM. CLINICAL HISTORY: Possible liver mass seen on noncontrast CT. COMPARISON: ABDOMEN/PELVIS W/O 03/11/2019 9:46 PM. TECHNIQUE: Real-time scanning was performed with static images obtained. FINDINGS: Liver: The liver is enlarged and diffusely heterogeneous. Multiple mildly hypoechoic masses are present. There is a large right hepatic dome mass as seen on CT measuring up to 8.8 x 7.8 x 9.4 cm as well as other smaller masses such as a 2.2 cm inferior right hepatic lesion. The right lobe measures 20 cm. Main portal vein flow: Hepatopetal. Gallbladder: The gallbladder is elongated to 16 cm. No wall thickening, mass or stones identified. Negative sonographic Amin sign. Biliary System: CBD measures 9 mm. Prominent as seen on prior CT. No obstructing stone or mass identified. Other: The right kidney measures 11.0 cm and shows no hydronephrosis. No ascites. IMPRESSION: Multiple liver masses with the largest about the right hepatic dome measuring up to 9.4 cm. These could represent benign lesions such as hemangiomas versus malignancy including primary liver neoplasm or metastatic disease. Further evaluation with dedicated contrast-enhanced liver CT or MRI suggested when possible. [facility]
--- NOTE | 2019-03-12 11:58 | Discharge Plan ---
Discharge Plan Problem Reviewed?: Yes Disposition: 02 Transfer Acute Care Hosp Condition: Critical Instruction Topics: Norepinephrine injection, Sepsis No Smoking: If you smoke, Please STOP! Call for help. Follow-up with: Nicole Mack PA [Primary Care Provider] -
[2019-03-12 15:23] VITALS: BP 117/82
--- NOTE | 2019-03-12 18:07 | DISCHARGE SUMMARY ---
Discharge Summary Admit Date: 03/12/19 Discharge Date: 03/12/19 Discharging Provider: Dr Nanci Francis Primary Care Provider: Nicole Mack Code Status: Attempt Resuscitation Condition at Discharge: Critical Discharge Disposition: 02 Transfer Acute Care Hosp - HOSPITAL COURSE Hospital Course: See progress Note from 03/12/19 at 0807. This Hospitalist reached out to get her transferred to a facility with higher level of care when her WBC climbed even further, to 65K and when her Echo result returned showing calcific masses on the aortic valve with aortic stenosis. There will be a need for a RANDALL and also Infectious Disease and Hematology specia lists. The patient was accepted in transfer by [facility], where she was transferred by [facility]. - ALLERGIES Allergies/Adverse Reactions: Allergies Allergy/AdvReac Type Severity Reaction Status Date / Time clindamycin Allergy Hives Verified 03/11/19 20:35 Sulfa (Sulfonamide Allergy Hives Verified 03/11/19 20:35 Antibiotics) - MEDICATIONS Home Medications: Ambulatory Orders Medication Instructions Recorded Confirmed Benazepril/Hydrochlorothiazide 1 tab PO BID 01/07/13 03/12/19 [Benazepril-Hctz 20-12.5 mg Tab] Simvastatin 40 mg PO QPM 01/07/13 03/12/19 Sertraline [Zoloft] 50 mg PO DAILY 12/18/13 03/12/19 Omeprazole 20 mg PO DAILY 01/10/15 03/12/19 Metoprolol Tartrate 25 mg PO BID 06/18/16 03/12/19 Docusate Sodium 250Mg Capsule 250 mg PO DAILY 03/12/19 03/12/19 [Colace 250Mg Capsule] Psyllium Husk [Metamucil] 1.5 tsp PO DAILY PRN 03/12/19 03/12/19 traMADol [Ultram] 50 mg PO .Q4-6H PRN 03/12/19 03/12/19 - LABS Result Diagrams: 03/12/19 09:58 03/12/19 09:58 - SEPSIS Current Stage of Sepsis: Septic shock Possible source of Sepsis: Unknown Sepsis Criteria: WBC count greater than 10% bands, WBC count greater than 12,000 or less than 4000, SBP less than 90 mmHg, Renal: urine output less than 0.5ml/kg/hr for 2 hours or creatinine gr
[2019-03-13] MEDS ORDERED: VANCOMYCIN INJ 1.5 GM in SODIUM CHLORIDE 0.9% 500 ML IV SCH (21:00)
[2019-03-14 14:55] LABS: 18 KD (IGG) BAND NON-REACTIVE; 23 KD (IGG) BAND NON-REACTIVE; 23 KD (IGM) BLOT NON-REACTIVE; 28 KD (IGG) BAND NON-REACTIVE; 30 KD (IGG) BAND REACTIVE; 39 KD (IGG) BAND NON-REACTIVE; 39 KD (IGM) BLOT NON-REACTIVE; 41 KD (IGG) BAND NON-REACTIVE; 41 KD (IGM) BLOT NON-REACTIVE; 45 KD (IGG) BAND NON-REACTIVE; 58 KD (IGG) BAND NON-REACTIVE; 66 KD (IGG) BAND NON-REACTIVE; 93 KD (IGG) BAND NON-REACTIVE
[2019-03-14 15:21] LABS: ANA SCREEN NEGATIVE (NEGATIVE)
== END 2019-03-12 15:00 | disposition short-term general hospital (02) | DRG 871 ==
LOC: ED 20:19 → ICU 03-12 00:47
PROVIDERS: ADMIT Internal Medicine; ATTEND Internal Medicine
DX: A41.9 Sepsis, unspecified organism (principal); R65.21 Severe sepsis with septic shock; N17.9 Acute kidney failure, unspecified; E87.1 Hypo-osmolality and hyponatremia; R01.1 Cardiac murmur, unspecified; D68.9 Coagulation defect, unspecified; I35.8 Other nonrheumatic aortic valve disorders; I35.0 Nonrheumatic aortic (valve) stenosis; D72.825 Bandemia; I10 Essential (primary) hypertension; E86.1 Hypovolemia; E83.42 Hypomagnesemia; E87.6 Hypokalemia; R91.8 Other nonspecific abnormal finding of lung field; R93.5 Abnormal findings on diagnostic imaging of other abdominal regions, including retroperitoneum; R93.2 Abnormal findings on diagnostic imaging of liver and biliary tract; F32.9 Major depressive disorder, single episode, unspecified; R35.0 Frequency of micturition; E78.00 Pure hypercholesterolemia, unspecified; M19.90 Unspecified osteoarthritis, unspecified site; G89.29 Other chronic pain; M54.9 Dorsalgia, unspecified; H54.7 Unspecified visual loss; Z96.659 Presence of unspecified artificial knee joint; Z85.3 Personal history of malignant neoplasm of breast; Z85.42 Personal history of malignant neoplasm of other parts of uterus
CPT/HCPCS: 36415; 36556; 74176; 76705; 80048; 80053; 81001; 82533; 82728; 83605; 83690; 83735; 84100; 84443; 84484; 85025; 85610; 85651; 85730; 86038; 86140; 86617; 87040; 87077; 87086; 87150; 87181; 93005; 93306; 96361; 96365; 96366; 96368; 99285; 99291; A9270; J3370; J7120; 71045; 81003; 84300